=== PATIENT | female | born 1955 | race African-American/Black ===

== ENCOUNTER 2019-03-04 11:14 | Emergency (ER) | payer OTHER ==
--- NOTE | 2019-03-04 12:17 | ED ---
Back Pain - HPI Summary HPI Summary: 63 year old female presents to the emergency department for evaluation of left upper back pain. This problem has been present for 3 days and is constant. Pt describes the pain as sharp and throbbing and rates it as 10/10. She states that taking a deep breath in and sharp, quick movements make the pain worst. Nothing makes the pain better. The pt is on tramadol and gabapentin for chronic low back pain and she states those medications are not helping this new type of pain. Pt denies any trauma, SOB, cough, fevers, chest pain, weakness, numbness, and tingling. - History of Current Complaint Chief Complaint: EDBackInjuryPain Stated Complaint: PAIN IN LEFT SHOULDER/BACK SINCE SAT. PER PT Time Seen by Provider: 03/04/19 11:28 Hx Obtained From: Patient Onset/Duration: Gradual Onset Onset/Duration: Started Days Ago, Atraumatic Back Pain Location: Is Discrete @ - left upper back Pain Intensity: 10 Pain Scale Used: 0-10 Numeric Character: Sharp Aggravating Symptom(s): Movement, Other - deep inhalation Associated Signs And Symptoms: Positive: Negative. Negative: Swelling, Redness , Bruising, Fever, Weakness, Numbness, Tingling - Allergies/Home Medications Allergies/Adverse Reactions: Allergies Allergy/AdvReac Type Severity Reaction Status Date / Time No Known Allergies Allergy Verified 03/04/19 11:26 PMH/Surg Hx/FS Hx/Imm Hx Previously Healthy: Yes Endocrine/Hematology History: Reports: Hx Diabetes, Hx Thyroid Disease - hypothyroidism Cardiovascular History: Reports: Hx Hypertension Denies: Hx Pacemaker/ICD Respiratory History: Reports: Hx Pneumonia, Hx Sleep Apnea GI History: Reports: Hx Gastroesophageal Reflux Disease Musculoskeletal History: Reports: Hx Arthritis, Hx Back Problems, Hx Fibromyalgia, Other Musculoskeletal History - FIBROMYALGIA Sensory History: Reports: Hx Contacts or Glasses, Hx Hearing Aid, Hx Hearing Problem Opthamlomology History: Reports: Hx Contacts or Glasses Neurological History: Reports: Hx Headaches, Other Neuro Impairments/Disorders - PAIN CLINIC PT Psychiatric History: Reports: Hx Depression Denies: Hx Panic Disorder - Surgical History Surgery Procedure, Year, and Place: KNEE REPLACEMENTS-Rt :07/2012; Lt KNEE REPLACEMENT :1995; 1986 bilateral foot surgery 05/31 cataract removal 07/01 right carpal tunnel surgery 08/31. April 26 2017- left rotator cuff repair Hx Anesthesia Reactions: No Infectious Disease History: No Infectious Disease History: Denies: Hx Clostridium Difficile, Hx Hepatitis, Hx Human Immunodeficiency Virus (HIV), Hx of Known/Suspected MRSA, Hx Shingles, Hx Tuberculosis, Hx Known/ Suspected VRE, Hx Known/Suspected VRSA, History Other Infectious Disease, Traveled Outside the [place] in Last 30 Days - Social History Alcohol Use: None Substance Use Type: Reports: None Smoking Status (MU): Former Smoker Type: Cigarettes Review of Systems Constitutional: Negative Negative: Fever, Chills, Fatigue, Skin Diaphoresis Eyes: Negative ENT: Negative Cardiovascular: Negative Negative: Palpitations, Chest Pain Respiratory: Negative Negative: Shortness Of Breath, Cough Gastrointestinal: Negative Negative: Vomiting, Diarrhea, Nausea Positive: Other - pain in the left upper back. Negative: Decreased ROM, Edema Skin: Negative Negative: Rash Neurological: Negative Negative: Headache, Weakness, Paresthesia, Numbness All Other Systems Reviewed And Are Negative: Yes Physical Exam Triage Information Reviewed: Yes Vital Signs On Initial Exam: Initial Vitals Temp Pulse Resp BP Pulse Ox 96.7 F 70 20 179/96 98 03/04/19 11:21 03/04/19 11:21 03/04/19 11:21 03/04/19 11:21 03/04/19 11:21 Vital Signs Reviewed: Yes Appearance: Positive: Well-Appearing, Well-Nourished Skin: Positive: Warm, Skin Color Reflects Adequate Perfusion, Dry, Other - Well healed surgical scar on the left shoulder post rotator cuff surgery Head/Face: Positive: Normal Head/Face Inspection Eyes: Positive: EOMI, MAXIMO, Conjunctiva Clear ENT: Positive: Normal ENT inspection, Hearing grossly normal, Pharynx normal Neck: Positive: Supple, Nontender Respiratory/Lung Sounds: Positive: Clear to Auscultation, Breath Sounds Present Cardiovascular: Positive: Normal, RRR, Pulses are Symmetrical in both Upper and Lower Extremities Musculoskeletal: Positive: Normal, Strength/ROM Intact, Pain @ - left upper back along the scapula and trapezius muscle. Pain elicited with palpation and movement Neurological: Positive: Normal, Sensory/Motor Intact, Alert, Oriented to Person Place, Time, Speech Normal Psychiatric: Positive: Normal Diagnostics - Vital Signs Vital Signs Temp Pulse Resp BP Pulse Ox 03/04/19 11:21 96.7 F 70 20 179/96 98 - Laboratory Lab Statement: Any lab studies that have been ordered have been reviewed, and results considered in the medical decision making process. Back Pain Course/Dx - Course Course Of Treatment: Pt presents with sharp pain on her left upper back that is worse with movement and deep inhalation. Pain is elicited during the physical exam with deep palpation of the upper back muscles. Pt reports no chest pain, SOB, or cough. She was informed her pain is likely due to muscle tightness in the upper back. She was given stretching exercises to do to help alleviate the pain, advised to use heat on the area, and continue seeing her pain management provider. - Diagnoses Differential Diagnosis/HQI/PQRI: Positive: Strain, Sprain, Other - PE, muscle strain, trauma Provider Diagnoses: Muscle pain Discharge - Sign-Out/Discharge Documenting (check all that apply): Patient Departure Patient Received Moderate/Deep Sedation with Procedure: No - Discharge Plan Condition: Stable Disposition: HOME Patient Education Materials: Muscle Strain (ED) Referrals: Vero Pickering NP [Primary Care Provider] - Additional Instructions: You have a tightness in the muscles of your back Heat and gentle stretches will be most beneficial for relief/improvement Continue with your dosage of tramadol for relief Follow up with your PCP - Billing Disposition and Condition Condition: STABLE Disposition: Home
[2019-03-04 12:29] VITALS: BP 163/91
== END 2019-03-04 12:29 | disposition home or self-care (01) ==
LOC: ED 11:14
DX: M79.10 Myalgia, unspecified site (principal); I10 Essential (primary) hypertension; K21.9 Gastro-esophageal reflux disease without esophagitis; M79.7 Fibromyalgia; F32.9 Major depressive disorder, single episode, unspecified; Z87.891 Personal history of nicotine dependence; E11.9 Type 2 diabetes mellitus without complications; E03.9 Hypothyroidism, unspecified
CPT/HCPCS: 93005; 99282

== ENCOUNTER 2019-08-14 10:41 | Inpatient (IN) | payer OTHER ==
[~2019-08-14 10:41] MED LIST: Buffered Lidocaine 1% SYRIN* 1 ML/SYRINGE INTRADERM ONE; Famotidine IV* 10 MG/ML 2 ML (20 mg) IV ONE; Gabapentin CAP(*) 300 MG PO ONE; Lactated Ringers 1000 ML Bag* 1,000 ML IV SCH; Tranexamic Acid 1,000 MG in NS 0.9% 50 ML* (outpatient use) IV SCH
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
--- OUTSIDE RECORDS SUMMARY | 2019-08-14 10:44 | XMS REPORT | Continuity of Care Document ---
:1955 External Reference #:[id number] Author Name Kirstin Pickering, [facility] Address [address] [place] [id number] Care Team Providers Name Role Phone Boby Wilde MD - Orthopaedic Care Team Information Silk Presser [phone] Surgery Kirstin Pickering NP - Nurse Care Team Information Silk Presser [phone] Practitioner Problems Active Problems Provider Date Benign [...] 04/13/2017 Chronic post-traumatic stress disorder Kirstin Pickering SEKOU Onset: 03/12 Recurrent depression Kirstin Pickering SEKOU Onset: 03/12/2018 Anxiety Kirstin Pickering CUTTING MACHINE OPERATOR HELPER Onset: 03/12/2018 Osteoarthritis of left hip joint Kirstin Pickering SEKOU Onset: 06/11/2019 Note: Document: 06/11/19 - Pain [...] Medications Active Medications SIG Qnty Indications Ordering Date Provider Multivitamin Adult 1 by mouth every 90tabs Ladan, 05/31/2018 day Jenmelissaferangelika, Tablets CUTTING MACHINE OPERATOR HELPER Fluoxetine HCL Take One Capsule 90caps F43.10 Bandon, 03/12/2018 20mg By Mouth Every Day Kirstin, Capsules With 40MG Capsule CUTTING MACHINE OPERATOR HELPER For A Total Daily Dose Of 60MG Ferrous Gluconate Take One Tablet By 60tabs Ladan, 02/08/2017 Mouth Twice A Day Kirstin 324(38Fe) mg Tablets CUTTING MACHINE OPERATOR HELPER Aspirin chew one tablet by 30units Ladan, 01/09/2017 81mg Chewtabs mouth every day Kirstin CUTTING MACHINE OPERATOR HELPER Fish Oil Take One Capsule 30caps Ladan, 07/09/2015 1000mg By Mouth Every Day Kirstin, Capsules CUTTING MACHINE OPERATOR HELPER Calcium take one tablet by 60tabs Ladan, 04/05/2015 Carbonate-Vitamin D mouth twice a day SEKOU [place] [id number] Tablets Levothyroxine Sodium Take One Tablet By 90tabs Cassandra Tovar, 04/05/2015 Mouth Every Day PNP-BC, CUTTING MACHINE OPERATOR HELPER, 75mcg Tablets Ibclc Losartan Potassium Take One Tablet By 90tabs Ladan, 12/23/2013 50mg Mouth Every Day Tracyferangelika, Tablets CUTTING MACHINE OPERATOR HELPER Albuterol Sulfate nebulized every 4 75ml Kim, 04/28/2013 hours as needed Iris Rowland (2.5mg/3ML) 0.083% Nebulizer Fluoxetine HCL take one capsule 90caps Clune, 09/04/2012 40mg by mouth every day Kirstin, Capsules with 20mg for 60mg CUTTING MACHINE OPERATOR HELPER total Tramadol HCL 2 po hs Hinkle,Qi 50mg Tablets Trazodone HCL Take Two Tablets 90tabs F43.10 Clune, 100mg By Mouth AT [facility], Tablets Bedtime CUTTING MACHINE OPERATOR HELPER Gabapentin taking 2 tabs PO 270caps M79.7 Clune, 300mg bid *prescribed by Kirstin, Capsules family counseling CUTTING MACHINE OPERATOR HELPER services Hydroxyzine HCL Take Two Tablets 60tabs Clune, 50mg By Mouth AT [facility], Tablets Bedtime CUTTING MACHINE OPERATOR HELPER Omeprazole Take One Capsule 30caps Clune, 20mg By Mouth Every Day Kirstin, Capsules DR Maximum Daily Dose CUTTING MACHINE OPERATOR HELPER = 1 Capsule Terazosin HCL take one capsule 90caps I10 Clune, 10mg by mouth every day Jenmelissaferangelika, Capsules maximum daily dose CUTTING MACHINE OPERATOR HELPER = 1 capsule Atorvastatin Calcium Take One Tablet By 30tabs Clune, Mouth Every Day Jenferleijenniffer, 40mg Tablets CUTTING MACHINE OPERATOR HELPER Verapamil HCL Take One Tablet By 60tabs Clune, 120mg Mouth Twice A Day Tracyferleigh, Tablets CUTTING MACHINE OPERATOR HELPER Methocarbamol Unknown 500mg Tablets Medications Administered in Office Medication SIG Qnty Indications Ordering Provider Date Methylprednisolone acetate Debo Matute, 12/14/2016 (Depomedrol) 80mg injection RPAC Injection Methylprednisolone acetate Debo Matute, 02/15/2016 (Depomedrol) 80mg injection RPAC Injection Depomedrol 40mg/1cc Debo Matute, 08/03/2015 (methylprednisolone acetate) RPAC Injection Depomedrol 40mg/1cc Debo Matute, 08/21/2014 (methylprednisolone acetate) RPAC Injection Depomedrol 40mg/1cc Debo Matute, 11/04/2013 (methylprednisolone acetate) RPAC Injection Immunizations CPT Code Status Date Vaccine Lot # [id number] Given 09/02/2018 Influenza Virus Vaccine, Quadrivalent, 36 Mos+, [id number] 45487 Given 11/29/2016 Influenza Virus Vaccine Split Virus Use For [id number] Individual 3Yr Older 01115 Given 05/29/2016 Tdap injection [id number] Q2038 Given 09/03/2015 Influenza Vaccine (Fluzone) Age 3 And Older [id number] 59404 Given 09/03/2015 Pneumococcal Conjugate Vaccine 13 Valent For [id number] Intramuscular Use 04194 Given 08/26/2014 flu vaccination 03146 Given 11/26/2012 flu vaccination 37436 Given 09/26/2011 Pneumovax Injection 10206 Given 09/26/2011 flu vaccination 14706 Given 07/27/2010 flu vaccination 93862 Given 12/17/2009 flu vaccination 20568 Given 12/17/2009 H1N1 Immuniation Adminstration 79809 Given 12/17/2009 H1N1 Immuniation Adminstration 90535 Given 09/23/2008 flu vaccination 99599 Given 11/23/2005 flu vaccination Vital Signs Date Vital Result Comment 07/15/2019 11:15am BP Systolic Sitting Left Arm 149 mmHg BP Diastolic Sitting Left Arm 91 mmHg Body Temperature 97.9 F Heart Rate 81 /min Respiratory Rate 19 /min Height 63 inches 5'3" Weight 219.00 lb BMI (Body Mass Index) 38.8 kg/m2 BSA (Body Surface Area) 2.01 m2 Mercedes body weight in kilograms 52 kg Pain Level 8 lower back and hip/leg 04/01/2019 10:36am BP Systolic 142 mmHg BP Diastolic 80 mmHg Heart Rate 89 /min Respiratory Rate 18 /min Height 63 inches 5'3" Weight 222.00 lb BMI (Body Mass Index) 39.3 kg/m2 BSA (Body Surface Area) 2.02 m2 Mercedes body weight in kilograms 52 kg O2 % BldC Oximetry 98 % Results Test Date Facility Test Result H/L Range Note Comprehensive 07/15/[address] [facility] [address] Glucose 96 mg/dL Normal 74-106 1 Metabolic Panel [address] [place] [address] [phone] BUN 13 mg/dL Normal 7-18 Creatinine 0.9 mg/dL Normal 0.6-1.3 Glom Filtration Rate, Estimate >60 mL/min >60 If >60 mL/min >60 2 BUN/Creat 14.4 ratio Sodium 140 mmol/L Normal [...] Normal 0.2-1.0 Sgot/Ast 14 U/L Low 15-37 3 SGPT/Alt 23 U/L Normal 12-78 Alkaline Phosphatase 129 U/L High 45-117 Laboratory test 07/15/[address] Thyroid Stim 2.95 Normal 0.30 -4.[address] [place] [address] Hormone uIU/[place] [address] [phone] LDL Cholesterol 07/15/[address] Cholesterol 190 mg/dL <200 4 Profile [address] [place], [place] [id number] [phone] Triglycerides 72 mg/dL <150 5 HDL Cholesterol 99 mg/dL >40 6 LDL-Cholesterol 77 mg/dL < 100 7 Laboratory test 03/11/[address] C-Reactive 3.8 mg/L High < 3.0 [address] [place] [address] Protein,Quant [place], [place] [id number] [phone] Lyme Igg & Igm 03/11/[address] Lyme AB Igg By . By Western Blot [address] [facility] Western Blot [place], [place] [id number] [phone] P93 AB Absent . P66 AB Absent . P58 AB Absent . P45 AB Absent . P41 AB Present Abnormal . P39 AB Absent . P30 AB Absent . P28 AB Absent . P23 AB Absent . P18 AB Absent . Lyme Igg WB Interpretation Negative . 9 Lyme AB Igm By Western Blot . P41 AB Absent . P39 AB Absent . P23 AB Absent . Lyme Igm WB Interpretation Negative . 10 Laboratory test 03/11/[address] [facility] [address] Vitamin D,1,25 38.1 pg/mL 19.9-79.3 11 finding [address] [place] [address] [phone] Thyroid Stim Hormone 2.07 uIU/mL Normal 0.30-4.20 [...] 1.9-4.3 Antinuclear Antibodies, Ifa Negative . 13 1 I10 E03.9 E78.2 2 Note: Persistent reduction for 3 months or more in an eGFR <60 mL/min/1.73 m2 defines CKD. Patients with eGFR values >/=60 mL/min/1.73 m2 may also have CKD if evidence of persistent proteinuria is present. The original MDRD equation for estimated GFR is not valid for patients less than 18 years of age. Additional information may be found at www.kdoqi.org. 3 Values below the stated reference ranges of AST and ALT can be seen in normal populations. Clinical correlation is suggested. 4 Reference Guidelines*: Desirable: ........... < 200 mg/dL Borderline High: ..... 200-239 mg/dL High: ................ >= 240 mg/dL * The National Cholesterol Education Program (NCEP) 5 Reference Guidelines*: Normal: ............. < 150 mg/dL Borderline High: .... 150-199 mg/dL High: ............... 200-499 mg/dL Very High: .......... > 500 mg/dL * Source: National Cholesterol Education Program (NCEP) 6 Reference Guidelines*: Low HDL: ..... < 40 mg/dL Normal: ..... 40-60 mg/dL Desirable: ... > 60 mg/dL *The National Cholesterol Education Program(NCEP) 7 Reference Guidelines*: Optimal:........... <100 mg/dL Near Optimal....... 100-129 mg/dL Borderline High.... 130-159 mg/dL High............... 160-189 mg/dL Very High.......... >=190 mg/dL * Source: National Cholesterol Education Program (NCEP) 8 M25.542 9 Positive: 5 of the following Borrelia-specific bands: 18,23,28,30,39,41,45,58, 66, and 93. Negative: No bands or banding patterns which do not meet positive criteria. 10 Note: An equivocal or positive EIA result [...] are those recommended by CDC/ASTPHLD. p23=Osp C, t26=iakablfuf Note: Sera from individuals with the following may cross react in the Lyme Western Blot assays: other spirochetal diseases (periodontal disease, leptospirosis, relapsing fever, yaws, and pinta); connective autoimmune (Rheumatoid Arthritis and Systemic Lupus Erythematosus and also individuals with Antinuclear Antibody); other infections (Broxton Spotted Fever; Jacob-Holland Virus, and Cytomegalovirus). 11 Performed at: [address] [id number] Lead Cashier: Brandt Cates MD, Phone: [phone] This result was obtained with an ESR method that is not based on the standard Westergren Method. When comparing results obtained from the traditional Westergren ESR and this method it is important to refer to the reference range for each method. Method: Capillary Photometry 13 Negative <1:80 Borderline 1:80 Positive >1:80 Performed at: [address] [id number] Lead Cashier: Toya Hanley MD, Phone: [phone] Procedures Date Code Description Status 07/15/2019 76126 EKG-Tracing And Report Completed 05/28/2018 59601537 Mammogram Completed 05/21/2014 52856783 Colonoscopy Completed Medical Devices Description No Information Available Encounters Type Date Location Provider Dx Diagnosis Office Visit 07/15/2019 Family Medicine Ladan, Z00.01 Encounter for 11:30a [address] Kirstin, general adult CUTTING MACHINE OPERATOR HELPER medical exam w abnormal findings I45.10 Unspecified right bundle-branch block I10 Essential (primary) hypertension F43.10 Post-traumatic stress disorder, unspecified M25.552 Pain in left hip Z01.818 Encounter for other preprocedural examination Office Visit 04/01/2019 10:30a Family Medicine Kirstin Pickering, M79.[address] CUTTING MACHINE OPERATOR HELPER F43.10 Post-traumatic stress disorder, unspecified M25.562 Pain in left knee Office Visit 03/11/2019 11:15a Family Medicine Kirstin Pickering, M25.[address] CUTTING MACHINE OPERATOR HELPER left knee M25.541 Pain in joints of right hand M25.542 Pain in joints of left hand Assessments Date Code Description Provider 07/15/2019 Z00.01 Encounter for general adult medical Kirstin Pickering, CUTTING MACHINE OPERATOR HELPER examination with abnormal findings 07/15/2019 I45.10 Unspecified right bundle-branch block Kirstin Pickering , CUTTING MACHINE OPERATOR HELPER 07/15/2019 I10 Essential (primary) hypertension Kirstin Pickering, CUTTING MACHINE OPERATOR HELPER 07/15/2019 F43.10 Post-traumatic stress disorder, Karolyn Pickeringniferangelika, CUTTING MACHINE OPERATOR HELPER unspecified 07/15/2019 M25.552 Pain in left hip Kirstin Pickering, CUTTING MACHINE OPERATOR HELPER 07/15/2019 Z01.818 Encounter for other preprocedural Kirstin Pickering, CUTTING MACHINE OPERATOR HELPER examination 04/01/2019 M79.7 Fibromyalgia Kirsitn Pickering, CUTTING MACHINE OPERATOR HELPER 04/01/2019 F43.10 Post-traumatic stress disorder, Karolyn Pickeringniferangelika, CUTTING MACHINE OPERATOR HELPER unspecified 04/01/2019 M25.562 Pain in left knee Kirstin PickeringSEKOU 03/11/2019 M25.562 Pain in left knee Clhilda, KirstinSEKOU 03/11/2019 M25.541 Pain in joints of right hand Kirstin PickeringSEKOU 03/11/2019 M25.542 Pain in joints of left hand Ladan SEKOU [place] Plan of Treatment Future Appointment(s):11/10/2019 1:15 pm - Kirstin Pickering FNP at [facility] RD08/07/2019 8:20 am - Rivera Suarez PA at Cardiology Uhfzyy6307/15/2019 - Kirstin Pickering FNPZ00.01 Encounter for general adult medical examination with abnormal findingsComments:Immunizations reviewed and up to date - encourage yearly flu shotdepression screening negative but with known anxiety/PTSD as noted belowPap due olonoscopy 05/21/2014 repeat Mammogram - was done as per patient will need to get copy of reportFollow up:3- 4 months f/u of chronic medical yjgtxdY52.10 Unspecified right bundle-branch blockNew Orders:Echocardiogram, Ordered: 07/15/19Comments:has cardiology appt for 08/07/19 for cardiac clearance. Will be scheduled for echo prior to apptI10 Essential (primary) hypertensionNew Orders:Echocardiogram, Ordered: Comments:Blood pressure elevated today as well as at previous visit - however w/new EKG findings, and with cardiology appt already scheduled will let cardiologists make [id number] Post-traumatic stress disorder, unspecifiedComments:would like to consider coming off some medications - feels she is doing well without increased anxiety. Will continue to monitor while she goes through her surgeries and then consider medication changes AFTERFluoxetine 60 mg dailyGabapentin 300 mg 2 tabs BIDHydroxyzine 50 mg - two tabs PO at HS Trazodone 100 mg - sleepmay consider decreasing [id number] Pain in left hipZ01.818 Encounter for other preprocedural examinationNew Orders: Echocardiogram, Ordered: 07/15/19Comments:EKG shows new onset RBBB - has appt for cardiac clearance Labs done and unconcerning at this time. Other than above mentioned cardiac concern, and existing obesity which does place her at a higher risk for the proposed surgery - she is doing well and pending cardiac clearance, cleared. Functional Status Functional Condition Comment Date Status Glasses Active Independent with all ADL's Active Standard cane is used to ambulate Active Cpap Active Hearing Aid, left ear Active Mental Status Description No Information Available Referrals Refer to Reason for Referral Status Appt Date Jose Alberto Dickerson MD fibromyalgia management [facility]/08/2019 [address] [facility] [place] [address] [place] [address] [phone]
--- OUTSIDE RECORDS SUMMARY | 2019-08-14 10:44 | XMS REPORT | Continuity of Care Document ---
:1955 External Reference #:[id number] Author Name Rivera Suarez PA (transmitted by agent of provider Milan Santiago) Address [address], [address] [place] [address] Care Team Providers Name Role Phone Boby Wilde MD - Orthopaedic Care Team Information Kid Club Attendant [phone] Surgery Kirstin Pickering NP - Nurse Care Team Information [employer] Attendant Practitioner Problems Active Problems Provider Date Benign [...] mouth every 90tabs Kirstin Pickering, 2017 day MANAGER UI Tablets Fluoxetine HCL Take One Capsule 90caps F43.10 Kirstin Pickering, 2017 20mg By Mouth Every MANAGER UI Capsules Day With 40MG Capsule For A Total Daily Dose Of 60MG Ferrous Gluconate Take One Tablet 60tabs Kirstni Pickering, 02/08/2017 By Mouth Twice A MANAGER UI 324(38Fe) mg Tablets Day Aspirin chew one tablet 30units Kirstin Pickering, 01/09/2017 81mg Chewtabs by mouth every MANAGER UI day Fish Oil Take One Capsule 30caps Kirstin Pickering, 07/09/2015 1000mg By Mouth Every MANAGER UI Capsules Day Calcium take one tablet 60tabs Kirstin Pickering, 04/05/2015 Carbonate-Vitamin D by mouth twice a MANAGER UI day [id number] Tablets Levothyroxine Sodium Take One Tablet 90tabs Cassandra Tovar, 04/05/2015 By Mouth Every PNP-BC, MANAGER UI, Ibclc 75mcg Tablets Day Losartan Potassium Take One Tablet 90tabs Tracy Pickeringvivianaangelika, 2013 50mg By Mouth Every MANAGER UI Tablets Day Albuterol Sulfate nebulized every 4 75ml Janett Alvarez, 04/28/2013 hours as needed M.D. (2.5mg/3ML) 0.083% Nebulizer Fluoxetine HCL take one capsule 90caps Tracy Pickeringvivianaangelika, 09/04/2012 40mg by mouth every MANAGER UI Capsules day with 20mg for 60mg total Tramadol HCL 2 po hs Hinkle,Qi 50mg Tablets Trazodone HCL Take Two Tablets 90tabs F43.10 Karolyn Pickeringconnorangelika, 100mg By Mouth AT MANAGER UI Tablets Bedtime Gabapentin taking 2 tabs PO 270caps M79.7 Ladan, Veroangelika, 300mg bid *prescribed MANAGER UI Capsules by family counseling services Hydroxyzine HCL Take Two Tablets 60tabs Karolyn Pickeringconnormarthajenniffer, 50mg By Mouth AT MANAGER UI Tablets Bedtime Omeprazole Take One Capsule 30caps Tracy Pickeringvivianamarthajenniffer, 20mg By Mouth Every MANAGER UI Capsules DR Day Maximum Daily Dose = 1 Capsule Terazosin HCL take one capsule 90caps I10 Tracy Pickeringvivianaangelika, 10mg by mouth every MANAGER UI Capsules day maximum daily dose = 1 capsule Atorvastatin Calcium Take One Tablet 30tabs Tracy Pickeringvivianaangelika, By Mouth Every MANAGER UI 40mg Tablets Day Methocarbamol Unknown 500mg Tablets Medications Administered in Office Medication SIG Qnty Indications Ordering Provider Date Methylprednisolone acetate Debo Matute, 12/14/2016 (Depomedrol) 80mg injection RPAC Injection Methylprednisolone acetate Debo Matute, 02/15/2016 (Depomedrol) 80mg injection RPAC Injection Depomedrol 40mg/1cc Debo Matute, 08/03/2015 (methylprednisolone acetate) RPAC Injection Depomedrol 40mg/1cc Debo Matute, 08/21/2014 (methylprednisolone acetate) RPAC Injection Depomedrol 40mg/1cc Debo Matute, 11/04/2013 (methylprednisolone acetate) [facility] Injection Immunizations CPT Code Status Date Vaccine Lot # 84660 Given 09/02/2018 Influenza Virus Vaccine, Quadrivalent, 36 Mos+, [id number] .[id number] 36122 Given 11/29/2016 Influenza Virus Vaccine Split Virus Use For [id number] Individual 3Yr Older 31092 Given 05/29/2016 Tdap injection [id number] Q2038 Given 09/03/2015 Influenza Vaccine (Fluzone) Age 3 And Older [id number] 99009 Given 09/03/2015 Pneumococcal Conjugate Vaccine 13 Valent For [id number] Intramuscular Use 54713 Given 08/26/2014 flu vaccination 68050 Given 11/26/2012 flu vaccination 61536 Given 09/26/2011 Pneumovax Injection 40165 Given 09/26/2011 flu vaccination 39310 Given 07/27/2010 flu vaccination 67476 Given 12/17/2009 flu vaccination 75766 Given 12/17/2009 H1N1 Immuniation Adminstration 70685 Given 12/17/2009 H1N1 Immuniation Adminstration 19791 Given 09/23/2008 flu vaccination 67250 Given 11/23/2005 flu vaccination Vital Signs Date Vital Result Comment 08/07/2019 9:54am BP Systolic Sitting Left Arm 138 mmHg BP Diastolic Sitting Left Arm 88 mmHg Heart Rate 49 /min Respiratory Rate 18 /min Height 63 inches 5'3" Weight 220.00 lb BMI (Body Mass Index) 39.0 kg/m2 BSA (Body Surface Area) 2.01 m2 Jackson body weight in kilograms 52 kg O2 % BldC Oximetry 97 % Ora Ejection Fraction 65% 07/15/2019 11:15am BP Systolic Sitting Left Arm 149 mmHg BP Diastolic Sitting Left Arm 91 mmHg Body Temperature 97.9 F Heart Rate 81 /min Respiratory Rate 19 /min Height 63 inches 5'3" Weight 219.00 lb BMI (Body Mass Index) 38.8 kg/m2 BSA (Body Surface Area) 2.01 m2 Jackson body weight in kilograms 52 kg Pain Level 8 lower back and hip/leg Results Test Date Facility Test Result H/L Range Note Inr/Protime [facility] Inr 0.90 Normal 0.82-1.09 1 9 [phone] Laboratory test [facility] Partial 32.9 seconds Normal 26.0-38.0 finding 9 [phone] Thrombo Time PTT Urinalysis [facility] Urine Color Yellow Profile 9 [phone] Urine Appearance Clear Urine Specific [place] 1.013 Normal 1.010-1.030 Urine pH 5.0 Normal 5-9 Urine Urobilinogen Negative Negative Urine Ketones Negative Negative Urine Protein Negative Negative Urine Leukocytes Negative Negative Urine Blood Negative Negative Urine Nitrite Negative Negative Urine Bilirubin Negative Negative Urine Glucose Negative Negative CBC Auto 08/04/2019 [facility] White Blood 6.7 10^3/ uL Normal 3.5-10.8 Diff [phone] Count Red Blood Count 4.86 10^6/uL Normal [...] Cells % 0.0 Type & Screen 08/04/2019 [facility] Patient Blood A Negative [phone] Type Antibody Screen NEGATIVE Urine Culture And 08/04/2019 [facility] Urine SEE RESULT 2 Sensitivities [phone] Culture BELOW Comprehensive 07/15/[address] [facility] [address] Glucose 96 mg/dL Normal 74-10 3 Metabolic Panel [address] [place], [place] [id number] [phone] BUN 13 mg/dL Normal 7-18 Creatinine 0.9 [...] 129 U/L High 45-117 Laboratory test 07/15/[address] Thyroid Stim 2.95 Normal 0.30 -4.20 finding [address] Hormone uIU/mL [place], [place] [address] [phone] LDL Cholesterol 07/15/[address] Cholesterol 190 mg/dL <200 [address] [place] [address] [id number] [phone] Triglycerides 72 mg/dL <150 7 HDL Cholesterol 99 mg/dL >40 8 LDL-Cholesterol 77 mg/dL < 100 9 Laboratory test 03/11/[address] Vitamin 38.1 19.9-79.3 10, [address] [place] [address] D,1,25 pg/[place] [address] Oojsrrlmi [phone] Thyroid Stim Hormone 2.07 uIU/mL Normal 0.30-4.20 [...] 13 Lyme Igg & Igm By 03/11/2019 [facility] Lyme AB Igg By Western . Western Blot [address] [place] [address] [phone] P93 AB Absent . P66 AB Absent [...] Interpretation Negative . 15 Laboratory test 03/11/[address] C-Reactive 3.8 mg/L High < 3.[address] Protein,[place] [address] [phone] 1 Standard intensity warfarin therapeutic range: 2.0-3.0 High intensity warfarin therapeutic range: 2.5-3.5 2 SEE RESULT BELOW Name: YOLIS CORLEY V : [address]: Jaqui Dixon MD Acct: [id number] Unit: [id number] AGE: 63 Location: [facility] Re08/04/19 SEX: F Status: REG REF SPEC: [id number] MEI: 08/04/19 [facility] DR: Jaqui Dixon MD REQ: [id number] RECD: 08/04/19 STATUS: ANEL AGRAWAL DR: Kirstin Pickering MANAGER UI _ SOURCE: URINE SPDESC: ORDERED: Urine Culture Procedure Result Reported Site Urine Culture Final 08/05/19- 1345 ML No growth of clinically significant organisms * ML - Main Lab . END OF REPORT DEPARTMENT OF PATHOLOGY, [address] [place] [address] Constantin Monet M.D. Director [facility] # [id number] 3 I10 E03.9 E78.2 4 Note: Persistent [...] (NCEP) 10 M25.542 11 Performed at: - [address] [id number] Cafeteria Server: Brandt Cates MD, Phone: [phone] This result was obtained with an ESR method that is not based on the standard Westergren Method. When comparing results obtained from the traditional Westergren ESR and this method it is important to refer to the reference range for each method. Method: Capillary Photometry 13 Negative <1:80 Borderline 1:80 Positive >1:80 Performed at: [facility] [address] [id number] Cafeteria Server: Toya Hanley MD, Phone: [phone] 14 Positive: 5 of the following Borrelia-specific [...] are those recommended by CDC/ASTPHLD. p23=Osp C, d04=amorlagtt Note: Sera from individuals with the following may cross react in the Lyme Western Blot assays: other spirochetal diseases (periodontal disease, leptospirosis, relapsing fever, yaws, and pinta); connective autoimmune (Rheumatoid Arthritis and Systemic Lupus Erythematosus and also individuals with Antinuclear Antibody); other infections ([place] Spotted Fever; Jacob-Holland Virus, and Cytomegalovirus). Procedures Date Code Description Status 08/07/2019 99539 EKG-Tracing And Report Completed 07/28/2019 [id number] Mammogram Completed 07/15/2019 82067 EKG-Tracing And Report Completed 05/21/2014 [id number] Colonoscopy Completed Medical Devices Description No Information Available Encounters Type Date Location Provider Dx Diagnosis Office Visit 08/07/2019 Cardiology Office Erick Deborabrigida Z01.810 Encounter for 10:00a MELANIE Low preprocedural cardiovascular examination R94.31 Abnormal electrocardiogram [ECG] [EKG] I10 Essential (primary) hypertension R00.1 Bradycardia, unspecified Office Visit 07/15/2019 Family Pickering Z00.01 [facility] medical exam w abnormal findings I45.10 Unspecified right bundle-branch block I10 Essential (primary) hypertension F43.10 Post-traumatic stress disorder, unspecified M25.552 Pain in left hip Z01.818 Encounter for other preprocedural examination Office Visit 04/01/2019 10:30a Family Medicine BryanTracy stevensfiordaliza, M79.[address] MANAGER UI F43.10 Post-traumatic stress disorder, unspecified M25.562 Pain in left knee Office Visit 03/11/2019 11:15a Family Medicine BryanVero stevensmarthajenniffer, M25.[address] MANAGER UI left knee M25.541 Pain in joints of right hand M25.542 Pain in joints of left hand Assessments Date Code Description Provider 08/07/2019 Z01.810 Encounter for preprocedural Rivera Suarez, PA cardiovascular examination 08/07/2019 R94.31 Abnormal electrocardiogram [ECG] [EKG] Rivera Suarez PA 08/07/2019 I10 Essential (primary) hypertension Rivera Suarez, PA 08/07/2019 R00.1 Bradycardia, unspecified Rivera Suarez PA 07/15/2019 Z00.01 Encounter for general adult medical Kirstin Pickering, MANAGER UI examination with abnormal findings 07/15/2019 I45.10 Unspecified right bundle-branch block Kirstin Pickering , MANAGER UI 07/15/2019 I10 Essential (primary) hypertension Kirstin Pickering, MANAGER UI 07/15/2019 F43.10 Post-traumatic stress disorder, Kirstin Pickering, MANAGER UI unspecified 07/15/2019 M25.552 Pain in left hip Kirstin Pickering, MANAGER UI 07/15/2019 Z01.818 Encounter for other preprocedural Kirstin Pickering, MANAGER UI examination 04/01/2019 M79.7 Fibromyalgia Kirstin Pickering, MANAGER UI 04/01/2019 F43.10 Post-traumatic stress disorder, Kirstin Pickering, MANAGER UI unspecified 04/01/2019 M25.562 Pain in left knee Kirtsin Pickering, MANAGER UI 03/11/2019 M25.562 Pain in left knee Kirstin Pickering, MANAGER UI 03/11/2019 M25.541 Pain in joints of right hand Ladan SEKOU Fulton 03/11/2019 M25.542 Pain in joints of left hand Ladan SEKOU Fulton Plan of Treatment Future Appointment(s):11/10/2019 11:20 am - Rivera Suarez, PA at Cardiology Zdmfie7111/10/2019 1:15 pm - Kirstin Pickering FNP at [facility]08/07/2019 - Rivera Suarez, PAZ01.810 Encounter for [...] Dickerson MD fibromyalgia management Sent 07/08/2019 [address] [facility] [place] [address] [place] [id number] [phone]
--- OUTSIDE RECORDS SUMMARY | 2019-08-14 10:45 | XMS REPORT | Continuity of Care Document ---
:1955 External Reference #:[id number] Author Name Kirstin Pickering, [facility] Address [address] [place] [address] Care Team Providers Name Role Phone Boby Wilde MD - Orthopaedic Care Team Information Labor Utilization Superintendent Surgery Kirstin Pickering NP - Nurse Care Team Information Labor Utilization Superintendent Practitioner Problems Active Problems Provider Date Benign [...] Pickering SEKOU Onset: 03/12/2018 Anxiety Kirstin Pickering [employer] Onset: 03/12/2018 Osteoarthritis of left hip joint [...] every 90tabs Ladan, 05/31/2018 day Jenmelissaferangelika, Tablets [employer] OFFICER Fluoxetine HCL Take One Capsule 90caps F43.10 [place], 03/12/2018 20mg By Mouth Every Day Kirstin, Capsules With 40MG Capsule [employer] OFFICER For A Total Daily Dose Of 60MG Ferrous Gluconate Take One Tablet By 60tabs Ladan, 02/08/2017 Mouth Twice A Day Kirstin 324(38Fe) mg Tablets [employer]ICER Aspirin chew one tablet by 30units Ladan, 01/09/2017 81mg Chewtabs mouth every day Kirstin [employer] OFFICER Fish Oil Take One Capsule 30caps Ladan, 07/09/2015 1000mg By Mouth Every Day Kirstin, Capsules [employer] OFFICER Calcium take one tablet by 60tabs Ladan, 04/05/2015 Carbonate-Vitamin D mouth twice a day SEKOU Fulton [id number]-Gchi Tablets Levothyroxine Sodium Take One Tablet By 90tabs Cassandra Tovar, 04/05/2015 Mouth Every Day PNP-BC, L[employer] OFFICER, 75mcg Tablets Ibclc Losartan Potassium Take One Tablet By 90tabs Ladan, 12/23/2013 50mg Mouth Every Day Tracyferangelika, Tablets [employer] OFFICER Albuterol Sulfate nebulized every 4 75ml Kim, 04/28/2013 hours as needed Iris Rowland (2.5mg/3ML) 0.083% Nebulizer Fluoxetine HCL take one capsule 90caps Clune, 09/04/2012 40mg by mouth every day Kirstin, Capsules with 20mg for 60mg [employer] OFFICER total Tramadol HCL 2 po hs Hinkle,Qi 50mg Tablets Trazodone HCL Take Two Tablets 90tabs F43.10 Clune, 100mg By Mouth AT [facility], Tablets Bedtime L[employer] OFFICER Gabapentin taking 2 tabs PO 270caps M79.7 Clune, 300mg bid *prescribed by Kirstin, Capsules family counseling [employer] OFFIC[employer] services Hydroxyzine HCL Take Two Tablets 60tabs Clune, 50mg By Mouth AT [facility], Tablets Bedtime L[employer]ICER Omeprazole Take One Capsule 30caps Clune, 20mg By Mouth Every Day Kirstin, Capsules DR Maximum Daily Dose L[employer] OFFICER = 1 Capsule Terazosin HCL take one capsule 90caps I10 Clune, 10mg by mouth every day Jenmelissaferangelika, Capsules maximum daily dose L[employer] OFFICER = 1 capsule Atorvastatin Calcium Take One Tablet By 30tabs Clune, Mouth Every Day Jenferleijenniffer, 40mg Tablets L[employer] OFFICER Verapamil HCL Take One Tablet By 60tabs Clune, 120mg Mouth Twice A Day Tracyferleigh, Tablets [employer] OFFICER Methocarbamol Unknown 500mg Tablets Medications Administered in [...] CPT Code Status Date Vaccine Lot # 84287 Given 09/02/2018 Influenza Virus Vaccine, Quadrivalent, 36 Mos+, [id number] .5ML 47053 Given 11/29/2016 Influenza Virus Vaccine Split Virus Use For [id number] Individual 3Yr Older 80718 Given 05/29/2016 Tdap injection [id number] Q2038 Given 09/03/2015 Influenza Vaccine (Fluzone) Age 3 And Older [id number] 70077 Given 09/03/2015 Pneumococcal Conjugate Vaccine 13 Valent For [id number] Intramuscular Use 09799 Given 08/26/2014 flu vaccination 12040 Given 11/26/2012 flu vaccination 26282 Given 09/26/2011 Pneumovax Injection 55335 Given 09/26/2011 flu vaccination 61791 Given 07/27/2010 flu vaccination 26093 Given 12/17/2009 flu vaccination 48286 Given 12/17/2009 H1N1 Immuniation Adminstration 56939 Given 12/17/2009 H1N1 Immuniation Adminstration 55613 Given 09/23/2008 flu vaccination 32245 Given 11/23/2005 flu vaccination Vital Signs Date Vital Result Comment 07/15/2019 11:15am BP Systolic Sitting Left Arm 149 mmHg BP Diastolic Sitting Left Arm 91 mmHg Body Temperature 97.9 F Heart Rate 81 /min Respiratory Rate 19 /min Height 63 inches 5'3" Weight 219.00 lb BMI (Body Mass Index) 38.8 kg/m2 BSA (Body Surface Area) 2.01 m2 Schneider body weight in kilograms 52 kg Pain Level 8 lower back and hip/leg 04/01/2019 10:36am BP Systolic 142 mmHg BP Diastolic 80 mmHg Heart Rate 89 /min Respiratory Rate 18 /min Height 63 inches 5'3" Weight 222.00 lb BMI (Body Mass Index) 39.3 kg/m2 BSA (Body Surface Area) 2.02 m2 Schneider body weight in kilograms 52 kg O2 % BldC Oximetry 98 % Results Test Date Facility Test Result H/L Range Note Comprehensive 07/15/[address] [facility] [address] Glucose 96 mg/dL Normal 74-106 1 Metabolic Panel [address] [place] [address] [phone] BUN 13 mg/dL Normal 7-18 Creatinine 0.9 [...] 129 U/L High 45-117 Laboratory test 07/15/[address] Thyroid Stim 2.95 Normal 0.30 -4.[address] [place] [address] Hormone uIU/[place] [address] [phone] LDL Cholesterol 07/15/[address] Cholesterol 190 mg/dL <200 4 Profile [address] [place], [place] [address]38 [phone] Triglycerides 72 mg/dL <150 5 HDL Cholesterol 99 mg/dL >40 6 LDL-Cholesterol 77 mg/dL < 100 7 Laboratory test 03/11/[address] C-Reactive 3.8 mg/L High < 3.0 [address] [place] [address] Protein,Quant [place], [place] [address] [phone] Lyme Igg & Igm 03/11/[address] Lyme AB Igg By . By Western Blot [address] [facility] Western Blot [place], [place] [address] [phone] P93 AB Absent . P66 AB Absent [...] Interpretation Negative . 10 Laboratory test 03/11/[address] [facility] [address] Vitamin D,1,25 38.1 pg/mL 19.9-79.3 11 finding [address] [place] [address] [phone] Thyroid Stim Hormone 2.07 uIU/mL Normal 0.30-4.20 [...] are those recommended by CDC/ASTPHLD. p23=Osp C, w87=hdhtrjicr Note: Sera from individuals with the following may cross react in the Lyme Western Blot assays: other spirochetal diseases (periodontal disease, leptospirosis, relapsing fever, yaws, and pinta); connective autoimmune (Rheumatoid Arthritis and Systemic Lupus Erythematosus and also individuals with Antinuclear Antibody); other infections ([place] Spotted Fever; Jacob-Holland Virus, and Cytomegalovirus). 11 Performed at: [address] [id number] [employer] Supervisor: Brandt Cates MD, Phone: [phone] 12 This result was obtained with an ESR method that is not based on the standard Westergren Method. When comparing results obtained from the traditional Westergren ESR and this method it is important to refer to the reference range for each method. Method: Capillary Photometry 13 Negative <1:80 Borderline 1:80 Positive >1:80 Performed at: [address] [id number] [employer] Supervisor: Toya Hanley MD, Phone: [phone] Procedures Date Code Description Status 05/28/2018 [id number] Mammogram Completed 05/21/2014 [id number] Colonoscopy Completed Medical Devices Description No Information Available Encounters Type Date Location Provider Dx Diagnosis Office Visit 07/15/2019 Family Medicine Ldaan, Z00.01 Encounter for 11:30a [address] Kirstin, general adult [employer] medical exam w abnormal findings I45.10 Unspecified right bundle-branch block I10 Essential (primary) hypertension Z01.818 Encounter for other preprocedural examination M25.552 Pain in left hip F43.10 Post-traumatic stress disorder, unspecified Office Visit 04/01/2019 10:30a Family Medicine Kirstin Pickering, M79.[address] [employer] F43.10 Post-traumatic stress disorder, unspecified M25.562 Pain in left knee Office Visit 03/11/2019 11:15a Family Medicine Kirstin Pickering, M25.[address] [employer] left knee M25.541 Pain in joints of right hand M25.542 Pain in joints of left hand Assessments Date Code Description Provider 07/15/2019 Z00.01 Encounter for general adult medical Kirstin Pickering, [employer] examination with abnormal findings 07/15/2019 I45.10 Unspecified right bundle-branch block Kirstin Pickering , [employer]ICER 07/15/2019 I10 Essential (primary) hypertension Kirstin Pickering, [employer] OFFICER 07/15/2019 Z01.818 Encounter for other preprocedural Karolyn Pickeringnifiordaliza, [employer]IC[employer] examination 07/15/2019 M25.552 Pain in left hip Kirstin Pickering, [employer]IC[employer] 07/15/2019 F43.10 Post-traumatic stress disorder, Karolyn Pickeringniferangelika, [employer]ICER unspecified 04/01/2019 M79.7 Fibromyalgia Karolyn Pickeringnifiordaliza, [employer]ICER 04/01/2019 F43.10 Post-traumatic stress disorder, Ladan, Jennifermarthagh, L[employer] OFFICER unspecified 04/01/2019 M25.562 Pain in left knee Kirstin Pickering, [employer]IC[employer] 03/11/2019 M25.562 Pain in left knee Ladan KarolynconnorSEKOU carney 03/11/2019 M25.541 Pain in joints of right hand Ladan, KarolynconnorSEKOU carney 03/11/2019 M25.542 Pain in joints of left hand Ladan, SEKOU [place] Plan of Treatment Future Appointment(s):11/10/2019 1:15 pm - Kirstin Pickering FNP at [facility] RD08/07/2019 8:20 am - Rivera Suarez PA at Cardiology [id number]/15/2019 - Kirstin Pickering, SEKOUZ00.01 Encounter for general adult medical examination with abnormal findingsComments:Immunizations reviewed and up to date - encourage yearly flu shotdepression screening negative but with known anxiety/PTSD as noted belowPap due olonoscopy 05/21/2014 repeat Mammogram - was done as per patient will need to get copy of reportFollow up:3- 4 months f/u of chronic medical ezacnaC28.10 Unspecified right bundle-branch blockNew Orders:Echocardiogram, Ordered: 07/15/19Comments:has cardiology appt for 08/07/19 for cardiac clearance. Will be scheduled for echo prior to apptI10 Essential (primary) hypertensionNew Orders:Echocardiogram, Ordered: Comments:Blood pressure elevated today as well as at previous visit - however w/new EKG findings, and with cardiology appt already scheduled will let cardiologists make hbujdfktfidP23.818 Encounter for other preprocedural examinationNew Orders:Echocardiogram, Ordered: 07/15/19Comments:EKG shows new onset RBBB - has appt for cardiac clearance Labs done and unconcerning at this time. Other than above mentioned cardiac concern, and existing obesity which does place her at a higher risk for the proposed surgery - she is doing well and pending cardiac clearance, cleared.M25.552 Pain in left hipF43.10 Post- traumatic stress disorder, unspecifiedComments:would like to consider coming off some medications - feels she is doing well without increased anxiety. Will continue to monitor while she goes through her surgeries and then consider medication changes AFTERFluoxetine 60 mg dailyGabapentin 300 mg 2 tabs BIDHydroxyzine 50 mg - two tabs PO at HS Trazodone 100 mg - sleepmay consider decreasing hydroxyzine Functional Status Functional Condition Comment Date Status Glasses Active Independent with all ADL's Active Standard cane is used to ambulate Active Cpap Active Hearing Aid, left ear Active Mental Status Description No Information Available Referrals Refer to Reason for Referral Status Appt Date Jose Alberto Dickerson MD fibromyalgia management Sent 07/08/2019 [address] [place] [address] [place] [address] [phone]
--- OUTSIDE RECORDS SUMMARY | 2019-08-14 10:45 | XMS REPORT | Continuity of Care Document ---
:1955 External Reference #:[id number] Author Name Fiona Sheppard Care Team Providers Name Role Phone Boby Wilde MD - Orthopaedic Care Team Information Redrawer Surgery Kirstin Pickering NP - Nurse Care Team Information Redrawer [phone] Practitioner Problems Active Problems Provider Date Benign [...] by mouth every 90tabs Ladan, 05/31/2018 day Jenniferleigh, Tablets MORTGAGE MANAGER Fluoxetine HCL Take One Capsule 90caps F43.10 [place], 03/12/2018 20mg By Mouth Every Day Trcayferangelika, Capsules With 40MG Capsule MORTGAGE MANAGER For A Total Daily Dose Of 60MG Ferrous Gluconate Take One Tablet By 60tabs Ladan, 02/08/2017 Mouth Twice A Day Kirstin 324(38Fe) mg Tablets MORTGAGE MANAGER Aspirin chew one tablet by 30units Ladan, 01/09/2017 81mg Chewtabs mouth every day Jennifermarthagh, MORTGAGE MANAGER Fish Oil Take One Capsule 30caps Ladan, 07/09/2015 1000mg By Mouth Every Day Tracyferangelika, Capsules MORTGAGE MANAGER Calcium take one tablet by 60tabs Ladan, 04/05/2015 Carbonate-Vitamin D mouth twice a day Tracyferangelika, MORTGAGE MANAGER [phone] Tablets Levothyroxine Sodium Take One Tablet By 90tabs Cassandra Tovar, 04/05/2015 Mouth Every Day PNP-BC, MORTGAGE MANAGER, 75mcg Tablets Ibclc Losartan Potassium Take One Tablet By 90tabs Ladan, 12/23/2013 50mg Mouth Every Day Jenniferleigh, Tablets MORTGAGE MANAGER Albuterol Sulfate nebulized every 4 75ml Kim, 04/28/2013 hours as needed Janett, M.D. (2.5mg/3ML) 0.083% Nebulizer Fluoxetine HCL take one capsule 90caps Clune, 09/04/2012 40mg by mouth every day Kirstin, Capsules with 20mg for 60mg MORTGAGE MANAGER total Tramadol HCL 2 po hs Hinkle,Qi 50mg Tablets Trazodone HCL Take Two Tablets 90tabs F43.10 [place]une, 100mg By Mouth AT [facility], Tablets Bedtime MORTGAGE MANAGER Gabapentin taking 2 tabs PO 270caps M79.7 Clune, 300mg bid *prescribed by Kirstin, [facility] MORTGAGE MANAGER services Hydroxyzine HCL Take Two Tablets 60tabs Clune, 50mg By Mouth AT [facility], Tablets Bedtime MORTGAGE MANAGER Omeprazole Take One Capsule 30caps Clune, 20mg By Mouth Every Day Kirstin, Capsules DR Maximum Daily Dose MORTGAGE MANAGER = 1 Capsule Terazosin HCL take one capsule 90caps I10 Clune, 10mg by mouth every day Kirstin, Capsules maximum daily dose MORTGAGE MANAGER = 1 capsule Atorvastatin Calcium Take One Tablet By 30tabs Clune, Mouth Every Day Kirstin, 40mg Tablets MORTGAGE MANAGER Verapamil HCL Take One Tablet By 60tabs Clune, 120mg Mouth Twice A Day Kirstin, Tablets MORTGAGE MANAGER Methocarbamol Unknown 500mg Tablets Medications Administered in [...] CPT Code Status Date Vaccine Lot # [id number] Given 09/02/2018 Influenza Virus Vaccine, Quadrivalent, 36 Mos+, [id number] .[id number] 30809 Given 11/29/2016 Influenza Virus Vaccine Split Virus Use For [id number] Individual 3Yr Older 77445 Given 05/29/2016 Tdap injection [id number] Q2038 Given 09/03/2015 Influenza Vaccine (Fluzone) Age 3 And Older [id number] 13511 Given 09/03/2015 Pneumococcal Conjugate Vaccine 13 Valent For [id number] Intramuscular Use 44344 Given 08/26/2014 flu vaccination 14107 Given 11/26/2012 flu vaccination 18843 Given 09/26/2011 Pneumovax Injection 47859 Given 09/26/2011 flu vaccination 41878 Given 07/27/2010 flu vaccination 34094 Given 12/17/2009 flu vaccination 29447 Given 12/17/2009 H1N1 Immuniation Adminstration 80190 Given 12/17/2009 H1N1 Immuniation Adminstration 13210 Given 09/23/2008 flu vaccination 68527 Given 11/23/2005 flu vaccination Vital Signs Date Vital Result Comment 07/15/2019 11:15am BP Systolic Sitting Left Arm 149 mmHg BP Diastolic Sitting Left Arm 91 mmHg Body Temperature 97.9 F Heart Rate 81 /min Respiratory Rate 19 /min Height 63 inches 5'3" Weight 219.00 lb BMI (Body Mass Index) 38.8 kg/m2 BSA (Body Surface Area) 2.01 m2 [place] body weight in kilograms 52 kg Pain Level 8 lower back and hip/leg 04/01/2019 10:36am BP Systolic 142 mmHg BP Diastolic 80 mmHg Heart Rate 89 /min Respiratory Rate 18 /min Height 63 inches 5'3" Weight 222.00 lb BMI (Body Mass Index) 39.3 kg/m2 BSA (Body Surface Area) 2.02 m2 [place] body weight in kilograms 52 kg O2 % BldC Oximetry 98 % Results Test Date Facility Test Result H/L Range Note Comprehensive 07/15/2019 [facility] [address] Glucose 96 mg/dL Normal 74-106 1 Metabolic Panel [address] [place] [address] [phone] BUN 13 mg/dL Normal 7-18 Creatinine 0.9 [...] 129 U/L High 45-117 Laboratory test 07/15/[address] Thyroid Stim 2.95 Normal 0.30 -4.20 finding [address] [facility] Hormone uIU/[place] [address] [phone] LDL Cholesterol 07/15/[address] Cholesterol 190 mg/dL <200 4 Profile [address] [place], [place] [address] [phone] Triglycerides 72 mg/dL <150 5 HDL Cholesterol 99 mg/dL >40 6 LDL-Cholesterol 77 mg/dL < 100 7 Laboratory test 03/11/[address] C-Reactive 3.8 mg/L High < 3.0 [address] [place] [address] Protein,Quant [place], [place] [address] [phone] Lyme Igg & Igm 03/11/[address] Lyme AB Igg By . By Western Blot [address] [facility] Western Blot [place], [place] [address] [phone] P93 AB Absent . P66 AB Absent [...] Interpretation Negative . 10 Laboratory test 03/11/[address] Vitamin D,1,25 38.1 pg/mL 19.9-79.3 11 finding [address] [place] [address] [phone] Thyroid Stim Hormone 2.07 uIU/mL Normal 0.30-4.20 [...] are those recommended by CDC/ASTPHLD. p23=Osp C, n14=zwfyseyah Note: Sera from individuals with the following may cross react in the Lyme Western Blot assays: other spirochetal diseases (periodontal disease, leptospirosis, relapsing fever, yaws, and pinta); connective autoimmune (Rheumatoid Arthritis and Systemic Lupus Erythematosus and also individuals with Antinuclear Antibody); other infections (Bunkie Spotted Fever; Jacob-Holland Virus, and Cytomegalovirus). 11 Performed at: [address] [id number] Professor Of Forest Planning: Brandt Cates MD, Phone: [phone] 12 This result was obtained with an ESR method that is not based on the standard Westergren Method. When comparing results obtained from the traditional Westergren ESR and this method it is important to refer to the reference range for each method. Method: Capillary Photometry 13 Negative <1:80 Borderline 1:80 Positive >1:80 Performed at: [address] [id number] Professor Of Forest Planning: Toya Hanley MD, Phone: [phone] Procedures Date Code Description Status 07/15/2019 19651 EKG-Tracing And Report Completed 05/28/2018 20070517 Mammogram Completed 05/21/2014 71267516 Colonoscopy Completed Medical Devices Description No Information Available Encounters Type Date Location Provider Dx Diagnosis Office Visit 07/15/2019 Family Marcus Pickering, Z00.01 Encounter for 11:30a [address] Kirstin, general adult MORTGAGE MANAGER medical exam w abnormal findings I45.10 Unspecified right bundle-branch block I10 Essential (primary) hypertension F43.10 Post-traumatic stress disorder, unspecified M25.552 Pain in left hip Z01.818 Encounter for other preprocedural examination Office Visit 04/01/2019 10:30a Family Medicine Kirstin Pickering, M79.[address] MORTGAGE MANAGER F43.10 Post-traumatic stress disorder, unspecified M25.562 Pain in left knee Office Visit 03/11/2019 11:15a Family Medicine Kirstin Pickering, M25.[address] MORTGAGE MANAGER left knee M25.541 Pain in joints of right hand M25.542 Pain in joints of left hand Assessments Date Code Description Provider 07/15/2019 Z00.01 Encounter for general adult medical Kirstin Pickering, MORTGAGE MANAGER examination with abnormal findings 07/15/2019 I45.10 Unspecified right bundle-branch block Kirstin Pickering , MORTGAGE MANAGER 07/15/2019 I10 Essential (primary) hypertension Kirstin Pickering, MORTGAGE MANAGER 07/15/2019 F43.10 Post-traumatic stress disorder, Karolyn Pickeringniferangelika, MORTGAGE MANAGER unspecified 07/15/2019 M25.552 Pain in left hip Kirstin Pickering, MORTGAGE MANAGER 07/15/2019 Z01.818 Encounter for other preprocedural Kirstin Pickering, MORTGAGE MANAGER examination 04/01/2019 M79.7 Fibromyalgia Kirstin Pickering, MORTGAGE MANAGER 04/01/2019 F43.10 Post-traumatic stress disorder, Karolyn Pickeringniferangelika, MORTGAGE MANAGER unspecified 04/01/2019 M25.562 Pain in left knee Kristin Pickering, MORTGAGE MANAGER 03/11/2019 M25.562 Pain in left knee Kirstin PickeringSEKOU 03/11/2019 M25.541 Pain in joints of right hand Kirstin PickeringSEKOU 03/11/2019 M25.542 Pain in joints of left hand Vero PickeringSEKOU carney Plan of Treatment Future Appointment(s):11/10/2019 1:15 pm - Kirstin Pickering FNP at [facility] RD08/07/2019 8:20 am - Rivera Suarez PA at Cardiology [id number]/15/2019 - Ladan KarolynconnorSEKOU carneyZ00.01 Encounter for general adult medical examination with abnormal findingsComments:Immunizations reviewed and up to date - encourage yearly flu shotdepression screening negative but with known anxiety/PTSD as noted belowPap due olonoscopy 05/21/2014 repeat Mammogram - was done as per patient will need to get copy of reportFollow up:3- 4 months f/u of chronic medical fvfxcoV62.10 Unspecified right bundle-branch blockNew Orders:Echocardiogram, Ordered: 07/15/19Comments:has cardiology appt for 08/07/19 for cardiac clearance. Will be scheduled for echo prior to apptI10 Essential (primary) hypertensionNew Orders:Echocardiogram, Ordered: Comments:Blood pressure elevated today as well as at previous visit - however w/new EKG findings, and with cardiology appt already scheduled will let cardiologists make gtbmipgqhvpH58.10 Post-traumatic stress disorder, unspecifiedComments:would like to consider coming off some medications - feels she is doing well without increased anxiety. Will continue to monitor while she goes through her surgeries and then consider medication changes AFTERFluoxetine 60 mg dailyGabapentin 300 mg 2 tabs BIDHydroxyzine 50 mg - two tabs PO at HS Trazodone 100 mg - sleepmay consider decreasing [id number] Pain in left hipZ01.818 Encounter for other [...] Dickerson MD fibromyalgia management Sent 07/08/2019 [address] [facility] [place] [address] [place] [address] [phone]
--- OUTSIDE RECORDS SUMMARY | 2019-08-14 10:45 | XMS REPORT | Continuity of Care Document ---
:1955 External Reference #:[id number] Author Name Jaqui Dixon M.D. (transmitted by agent of provider Fabi Keith) Address [address] [place] [address] [place] [address] Care Team Providers Name Role Phone Kirstin Pickering FNP - Family Care Team Information Screen Printing Loader Unloader Problems Active Problems Provider Date Localized, primary osteoarthritis of the pelvic Jaqui Dixon M.D. Onset: region and thigh Sprain of lateral collateral ligament of knee Jaqui Dixon M.D. Onset: 04/09 Sprain of medial collateral ligament of knee Jaqui Dixon M.D. Onset: 2018 Tibialis tendinitis Ronnie Ulloa MD Onset: 11/25/2018 Arthroplasty of knee Jaqui Dixon M.D. Onset: 11/04/2018 Social History Type Date Description Comments Sex Unknown Cigarette Use Quit 23 Years Ago Tobacco Use Start: Unknown Never Smoked Cigars Tobacco Use Start: Unknown Never Smoked A Pipe Smokeless Tobacco Never Used Smokeless Tobacco ETOH Use Rarely consumes alcohol Tobacco Use Start: Unknown Patient has never smoked Smoking Status Reviewed: 07/02/19 Patient has never smoked Exercise Type/Frequency Exercises regularly Allergies, Adverse Reactions, Alerts Description No Known Drug Allergies Medications Active Medications SIG Qnty Indications Ordering Provider Date Meloxicam 1 by mouth 14tabs M25.562 Jaqui Dixon, 04/09/2019 15mg Tablets every day M.D. Claritin 1 po qd prn 30tabs Unknown 10mg Tablets Levothyroxine Sodium 1 po qd 90tabs Unknown 75mcg Tablets Prozac 1 by mouth Unknown 60mg Capsules every day Tramadol HCL ER 1 by mouth Unknown (Biphasic) every day 200mg Tablets ER 24HR Verapamil HCL ER Daily Unknown 150mg Aspirin Adult Low Dose 1 by mouth Unknown 81mg every day Tablets DR Reynolds Description No Information Available Vital Signs Date Vital Result Comment 07/02/2019 10:48am Height 62 inches 5'2" Weight 220.00 lb Heart Rate 64 /min Body Temperature 95.9 F O2 % BldC Oximetry 97 % BMI (Body Mass Index) 40.2 kg/m2 04/09/2019 11:07am Height 62 inches 5'2" Weight 218.00 lb Heart Rate 64 /min BP Systolic 142 mmHg BP Diastolic 98 mmHg Respiratory Rate 18 /min Body Temperature 97.0 F Pain Level 8 BMI (Body Mass Index) 39.9 kg/m2 Results Description No Information Available Procedures Description No Information Available Medical Devices Description No Information Available Encounters Type Date Location Provider Dx Diagnosis Office Visit 04/09/2019 Orthopedic Jaqui Dixon, M25.562 Pain in left knee 10:30a [facility] M25.462 Effusion, left knee Z96.652 Presence of left artificial knee joint S83.412A Sprain of medial collateral ligament of left knee, init S83.422A Sprain of lateral collateral ligament of left knee, init Assessments Date Code Description Provider 07/02/2019 M25.552 Pain in left hip Jaqui Dixon M.D. 07/02/2019 M16.12 Unilateral primary osteoarthritis, left hip Jaqui Dixon M.D. 04/09/2019 M25.562 Pain in left knee Jaqui Dixon M.D. 04/09/2019 M25.462 Effusion, left knee Jaqui Dixon M.D. 04/09/2019 Z96.652 Presence of left artificial knee joint Jaqui Dixon M.D. 04/09/2019 S83.412A Sprain of medial collateral ligament of left Jaqui Dixon M.D. knee, initial e 04/09/2019 S83.422A Sprain of lateral collateral ligament of left Jaqui Dixon M.D. knee, initial Plan of Treatment Future Appointment(s):08/04/2019 8:30 am - Ja[facility]08/[facility] 10:00 am - Jose Alberto Dickerson M.D. at [facility]07/02/2019 - Jaqui Dixon M.D.M25.552 Pain in left hipFollow up: Follow up: 7-10 days before hsabuifF09.12 Unilateral primary osteoarthritis, left hip Functional Status Description No Information Available Mental Status Description No Information Available Referrals Description No Information Available
[2019-08-14] MEDS ORDERED: Gabapentin CAP(*) 300 MG ONE (11:35)
[2019-08-14] MEDS ORDERED: Famotidine IV* 10 MG/ML 2 ML (20 mg) ONE (11:35)
[2019-08-14] MEDS ORDERED: Buffered Lidocaine 1% SYRIN* 1 ML/SYRINGE INTRADERM ONE (11:35)
[2019-08-14] MEDS ORDERED: ceFAZolin 2 GM PREMIX in ORs 2 GM/50 ML BAG ONE (11:35)
[2019-08-14] MEDS ORDERED: Midazolam* 1 MG/ML 5 ML VIAL (5 MG) ONE (11:41)
[2019-08-14] MEDS: Gabapentin CAP(*) 300 MG PO ONE ×2 (11:48→11:54)
[2019-08-14] MEDS ORDERED: KETAMINE HCL* 50 MG/ML 10 ML VIAL ONE (14:02)
[2019-08-14] MEDS ORDERED: Propofol* 10 MG/ML 20 ML BTL ONE ×2 (14:17→14:58)
[2019-08-14] MEDS ORDERED: Ketorolac INJ* 30 MG/ML 1 ML VIAL ONE (14:17)
[2019-08-14] MEDS ORDERED: Ondansetron INJ* 2 MG/ML VIAL ONE (14:17)
[2019-08-14] MEDS ORDERED: hydrALAZINE IV* 20 MG/ML VIAL ONE ×2 (14:17→15:36)
[2019-08-14] MEDS ORDERED: Naloxone* 0.4 MG/ML 1 ML VIAL IV PRN (15:14)
[2019-08-14] MEDS ORDERED: oxyCODONE TAB* 5 MG TAB PO PRN ×2 (15:14→16:33)
[2019-08-14] MEDS ORDERED: Acetaminophen TAB* 325 MG PO PRN (15:14)
[2019-08-14] MEDS ORDERED: DiMENhydriNATE IV* 50 MG/ML VIAL IV PUSH PRN (15:14)
[2019-08-14] MEDS ORDERED: Gabapentin CAP(*) 100 MG PO ONE (15:16)
[2019-08-14] MEDS ORDERED: Bupivacaine 0.25% SDV PF* 10 ML VIAL INJ ONE (16:07)
[2019-08-14] MEDS ORDERED: oxyCODONE/Acetamin 5/325 MG* TAB PO PRN ×2 (16:33)
[2019-08-14] MEDS ORDERED: Magnesium Hydroxide LIQ* 30 ML UDC PO PRN (16:33)
[2019-08-14] MEDS ORDERED: diPHENhydraMINE PO* 25 MG PO PRN (16:33)
[2019-08-14] MEDS ORDERED: diPHENhydraMINE IV* 50 MG/ML 1 ml VIAL (BENADRYL) IV PRN (16:33)
[2019-08-14] MEDS ORDERED: Ondansetron INJ* 2 MG/ML VIAL IV PRN (16:33)
[2019-08-14] MEDS ORDERED: Ondansetron ODT TAB* 4 MG PO PRN (16:33)
[2019-08-14] MEDS ORDERED: Gabapentin CAP(*) 100 MG ONE (17:01)
[2019-08-14] MEDS: Lactated Ringers 1000 ML Bag* 1,000 ML IV SCH (18:09)
--- NOTE | 2019-08-14 19:13 | OP ---
Operative Report - Blank - Operative Report Date of Operation: 08/14/19 Note: LOUIE CORLEY 1955 Date Of Surgery: 08/14/19 Jaqui Dixon MD Sole Splitter: Remedios NAVARRO did help throughout the procedure with preparation of the hip, wound retraction, manipulation of the hip, and wound closure. Anesthesiologist: Bianca Palm MD Anesthesia Type: Spinal Preoperative Diagnosis: Left severe degenerative osteoarthritis of the hip Postoperative Diagnosis: As above with near complete abductor tendon tear Procedure Performed: Left Total Hip Arthroplasty and Abductor tendon primary repair. Complications: None Specimen: Femoral head and acetabular reamings sent to pathology. Hardware used: This is uncemented Sonicbids total hip arthroplasty hardware for the femur a size 4 accolade II with 127 neck femoral component, for the acetabulum a size 50D trident II tritanium cluster hole shell, one 15mm screw, for the insert a size 38D MDM cementless liner, MDM X3 22.2/38D insert, and for the femoral head a size 22.2 +0 LFIT V40 femoral head. Brief history/Indication: LOUIE CORLEY was known in clinic and had a history of severe left hip pain. She failed conservative treatment with anti- inflammatories, pain pills, intra-articular injections and physical therapy. She elected to undergo left total hip arthroplasty due to continued pain and decreased quality of life. Radiographs showed severe end stage osteoarthritis of the hip with bone on bone contact. Informed consent was obtained from the patient. She understood the risks of surgery included but were not limited to: bleeding, infection, damage to nearby structures, intraoperative fracture, nerve palsy, failure of the hardware, early loosening, stiffness or loss of motion, dislocation, leg length discrepancy, anesthesia complications, stroke, heart attack, blood clot and . She wished to proceed. Intra-Operative findings: Intraoperatively the patient was noted to have severe loss of cartilage of the acetabulum and femoral head. She also had a near complete tear of her abductor tendons off the greater trochanter with muscle atrophy and proximal retraction. MDM implant was chosen to increase postoperative hip stability. Description of the Procedure: LOUIE CORLEY was identified in the preanesthesia unit. Her left hip was marked as the correct operative side. Informed consent was signed and placed in the chart. The patient was taken to the operating room and placed under anesthesia without complication. A cage catheter was placed. The patient was placed on the peg board with all bony prominences well padded. The left lower extremity was prepped and draped in the usual sterile fashion. Preoperative time -out was made to correctly identify the patient, side and site. Appropriate intraoperative antibiotics were given within one hour of incision. A standard posterior incision was made and carried sharply down to the lateral fascia. A new 10 blade was used to make an incision in the fascia in line with the skin incision. A charnley retractor was placed. There was a severe tear of the abductor tendons with proximal retraction and atrophy. The piriformis and conjoined tendons were identified and elevated off the posterolateral femur using electrocautery. These were tagged with number 5 Ethibond. Next electrocautery was used to make a posterolateral capsular flap and this was tagged with number 5 Ethibonds. The hip was carefully dislocated. Lesser trochanter to the center of the femoral head was measured at 55 mm. The oscillating saw was used to make the femoral neck cut. The femoral head was carefully removed. The femur was retracted anteriorly and the acetabular retractors were placed. Long-handled knife was used to sharply remove any remaining labrum from the acetabular rim. The acetabulum was sequentially reamed up to a size 50. A bleeding subchondral bone bed was obtained. A trial liner was placed and had excellent fit and stability. A 50D trident II tritanium cup with one 15 mm screw was placed and had excellent stability with appropriate anteversion and abduction angle. A size 38D MDM cementless liner was impacted into the acetabular shell. The liner was checked for stability and was stable. Next attention was turned to preparation of the femoral canal. A canal finder was used to enter the proximal femur. The femoral canal was sequentially broached up to a size 4 femoral broach trial. A trial neck and 22.2 +0 trial femoral head was chosen. Lesser trochanter to center of the femoral head measurement was satisfactory. The hip was reduced and taken through a range of motion. The hip was stable in all positions with good soft tissue tension and appropriate leg lengths. The hip was dislocated and all trials were removed. The final implant chosen was a accolade II size 4 with 127 neck angle. This stem was impacted into the femoral canal without difficulty. The stem was stable with appropriate anteversion. The femoral head chosen was a 22.2 + 0 with 22.2/38D MDM X3 liner insert. The head was impacted onto the femoral neck without difficulty. The final lesser trochanter to center of the femoral head measurement was satisfactory. The hip was reduced and taken through a range of motion. The hip was stable in all positions with good soft tissue tension and appropriate leg lengths. The hip was copiously irrigated with sterile saline. The previously tagged capsule and tendons were repaired to the posterolateral femur through two trochanteric drill holes. Number 5 ethibond suture was used to repair the abductor tendon available to the greater trochanter. This was a primary repair. The lateral fascia layer was closed using number 1 vicryls. The rest of the incision was closed in a layered fashion using 0 and 2-0 vicryls. The skin was closed using 3-0 monocryl suture and Dermabond. Sterile adaptic, 4x4s and paper tape was used to cover the incision. The patients anesthesia was reversed without difficulty. She was taken to the PACU in stable condition. Intended weight-bearing will be as tolerated with posterior hip precautions.
--- NOTE | 2019-08-14 19:26 | CONS ---
HOSPITAL MEDICINE CONSULTATION REPORT: DATE OF CONSULT: 08/14/19 PROVIDER: Masha Mcmahon NP. ATTENDING PHYSICIAN: Jaqui Dixon MD. CONSULTING PHYSICIAN: Elvia Silva MD (dictated by Masha Mcmahon NP). REASON FOR CONSULT: Co-management of chronic medical conditions. HISTORY OF PRESENT ILLNESS: Ms. Joel is a 63-year-old female with a past medical history significant for hypertension, hyperlipidemia, fibromyalgia, hypothyroidism, chronic back pain, arthritis, GERD, and obesity who presented to [facility] for an elective left total hip arthroplasty with Dr. Dixon. Please see dictated H and P from MELANIE Peter, for complete details. In brief, the patient had ongoing pain and failed conservative measures; therefore, opted for an elective left total hip arthroplasty with Dr. Dixon. In the immediate postoperative period, the patient has no complaints. Preoperatively, the patient denied any fever, chills, or unintended weight loss. Denies any chest pain or edema. Denies any cough, hemoptysis, or shortness of breath. No nausea , vomiting, diarrhea, abdominal pain, gross hematuria, or dysuria. Denies any focal weakness, sensory loss, visual complaints, dysphagia, arthralgias, myalgias, rashes, lesions, or open sores. Denies any psychosis or anxiety. Due to her chronic medical conditions, hospital medicine was asked to see and evaluate her and help co-manage her care during her hospitalization. PAST MEDICAL HISTORY: Significant for: 1. Hypertension. 2. Hyperlipidemia. 3. Fibromyalgia. 4. Hypothyroid. 5. Morbid obesity. 6. Arthritis. 7. GERD. 8. Right bundle-branch block. PAST SURGICAL HISTORY: 1. Left shoulder. 2. Left total knee. 3. Right total knee with revision. 4. . 5. Carpal tunnel. 6. Bunion surgery. 7. Bilateral cataracts. MEDICATIONS: Home medications include: 1. Levothyroxine 75 mcg p.o. daily. 2. Prozac 60 mg p.o. daily. 3. Tramadol 50 mg 2 tabs at bedtime. 4. Aspirin 81 mg p.o. daily. 5. Hydroxyzine 100 mg p.o. at bedtime. 6. Omeprazole 20 mg p.o. daily. 7. Terazosin HCL 10 mg p.o. daily. 8. Methocarbamol 1000 mg p.o. b.i.d. 9. Multivitamin. 10. Ferrous gluconate 324 mg. 11. Fish oil 1000 mg. 12. Calcium carbonate 600/400 one tab p.o. daily. 13. Losartan 50 mg p.o. daily. 14. Albuterol sulfate inhaled every 4 hours as needed. 15. Atorvastatin 40 mg p.o. at bedtime. 16. Amlodipine 5 mg p.o. at bedtime. 17. Trazodone 200 mg at bedtime. ALLERGIES: To PERCOCET, causes hallucinations. SOCIAL HISTORY: The patient is a former smoker, quit smoking in 1986. She denies any alcohol or illicit drug use. Surrogate decision maker in the event she is unable to make her own decisions is her son, Franki. She is a full code. REVIEW OF SYSTEMS: An 11-point review of systems was completed. All pertinent positives are mentioned in the HPI; otherwise, were negative. PHYSICAL EXAMINATION: General: At this time, Ms. Joel is alert and oriented, resting on the hospital bed in PACU. She is a well-developed, well- nourished female. She is in no acute distress. Vital Signs: Temperature 97.0 , heart rate 88, respirations are 20, O2 saturation 95%, blood pressure 142/83. HEENT: Head is atraumatic, normocephalic. Eyes: EOMs are intact. Sclerae anicteric and not pale. Oral mucosa appeared to be moist. Neck is supple. Lungs are clear to auscultation bilaterally. No wheezes, rales, or rhonchi. Cardiac: S1, S2. Regular rate and rhythm. No murmurs, rubs, or gallops. Abdomen is soft and nontender. Bowel sounds are present x4. Extremities: She has a dressing dry and intact to her left hip. Pedal pulses are +2 bilaterally. She is able to move all 4 extremities. There is no clubbing or cyanosis. Neurologic: She is awake, alert, oriented x3. Speech is clear. Thought process is intact. There are no gross focal deficits. Skin is intact. LABORATORY DATA AND DIAGNOSTIC STUDIES: CBC from 08/04/19: WBCs were 6.7, RBCs 4.86, hemoglobin 11.6, hematocrit was 36, platelet count was 191. INR was 0.90. Urine was within normal limits. IMPRESSION AND PLAN: Ms. Joel is a 63-year-old female with a past medical history significant for hypertension, hyperlipidemia, fibromyalgia, hypothyroidism, morbid obesity, arthritis, and gastroesophageal reflux disease who presented to [facility] for an elective left total hip arthroplasty with Dr. Dixon. In the immediate postoperative period, the patient has no complaints. Hospital medicine was asked to consult due to chronic medical conditions. Our recommendations are as follows: 1. Status post left total hip arthroplasty. Management per orthopedics. PT/ OT per orthopedics. Bowel regimen per orthopedics. Pain management per orthopedics. DVT prophylaxis per orthopedics. 2. Hypertension. The patient should continue on her losartan 50 mg p.o. daily with holding parameters for systolic blood pressure less than 110. We will hold her amlodipine and reevaluate this in the morning as to whether to restart or not. 3. Hyperlipidemia. She should continue on atorvastatin 40 mg p.o. daily. 4. Hypothyroidism. She should continue on her levothyroxine 75 mcg p.o. daily. 5. Fibromyalgia. She can have her gabapentin 600 mg p.o. b.i.d. 6. Gastroesophageal reflux disease. She should continue on omeprazole as previously prescribed. 7. FEN. She can have a regular diet. 8. Code status. She is a full code. 9. DVT prophylaxis. As per orthopedics. TIME SPENT: Time spent on this consultation was 45 minutes, greater than half the time was spent at the bedside reviewing the events leading thus far to her hospitalization, performing physical exam, and reviewing my plan of care. I have discussed this with my attending, Dr. Elvia Silva; she is in agreement with my plan. MASHA MCMAHON, SCHOOL COUNSELLOR [id number]/[facility] #: [id number] DAREN
[2019-08-14] MEDS: Morphine INJ* 2 MG/ML 1 ML SYRINGE (TWO MG - NEW SYRINGE VERSION) IV PRN (20:05)
[2019-08-14] MEDS ORDERED: HYDROcodone/ACETAMIN 5-325 MG* 1 TAB PO ONE (20:51)
[2019-08-14] MEDS: Docusate CAP* 100 MG PO SCH (21:26)
[2019-08-14] MEDS: Gabapentin CAP(*) 300 MG PO SCH (21:26)
[2019-08-14] MEDS: Pantoprazole TAB * 40 MG TAB PO SCH (21:26)
[2019-08-14] MEDS: Atorvastatin* 40 MG TAB PO SCH (21:27)
[2019-08-14] MEDS: Magnesium Hydroxide LIQ* 30 ML UDC PO SCH (21:27)
[2019-08-14] MEDS: Terazosin CAP* 5 MG PO SCH (21:27)
[2019-08-14] MEDS: Acetaminophen TAB* 325 MG PO SCH (22:30)
[2019-08-14] MEDS: ceFAZolin 1 GM ADVAN(*) 1 GM in NS 0.9% 50 ML* 50 ML IVPB SCH (22:33)
[2019-08-15] MEDS: traMADol TAB* 50 MG PO PRN ×3 (01:14→11:18)
[2019-08-15] MEDS ORDERED: HYDROcodone/ACETAMIN 5-325 MG* 1 TAB PO ONE (02:25)
[2019-08-15] MEDS: Cyclobenzaprine TAB* 10 MG PO PRN (03:16)
[2019-08-15] MEDS: Lactated Ringers 1000 ML Bag* 1,000 ML IV SCH (04:15)
[2019-08-15 05:39] LABS: Hematocrit 29 % (35-47); Hemoglobin 9.5 g/dL (12.0-16.0); Mean Platelet Volume 8.4 fL (7.4-10.4); Platelet Count 152 10^3/uL (150-450)
[2019-08-15] MEDS: Acetaminophen TAB* 325 MG PO SCH ×3 (05:44→23:56)
[2019-08-15] MEDS: Levothyroxine TAB* 75 MCG TAB PO SCH (05:44)
[2019-08-15] MEDS: ceFAZolin 1 GM ADVAN(*) 1 GM in NS 0.9% 50 ML* 50 ML IVPB SCH ×2 (05:44→13:43)
[2019-08-15 05:55] LABS: Calcium 8.7 mg/dL (8.6-10.3); EGFR African American 87.4 (>60); EGFR Non-African American 72.2 (>60); Potassium 3.8 mmol/L (3.5-5.0)
[2019-08-15] MEDS: Morphine INJ* 2 MG/ML 1 ML SYRINGE (TWO MG - NEW SYRINGE VERSION) IV PRN ×2 (07:19→13:53)
[2019-08-15] MEDS: Magnesium Hydroxide LIQ* 30 ML UDC PO SCH ×2 (08:24→19:31)
[2019-08-15] MEDS: Vitamin THERAPEUTIC TAB PO SCH (08:24)
[2019-08-15] MEDS: Apixaban* 2.5 MG TAB PO SCH ×2 (08:24→19:30)
[2019-08-15] MEDS: FLUoxetine CAP* 20 MG PO SCH (08:24)
[2019-08-15] MEDS: Gabapentin CAP(*) 300 MG PO SCH ×2 (08:24→19:30)
[2019-08-15] MEDS: Docusate CAP* 100 MG PO SCH ×2 (08:24→19:31)
[2019-08-15] MEDS ORDERED: MULTIVITAMIN PO SCH (09:00)
[2019-08-15] MEDS ORDERED: HYDROcodone/ACETAMIN 5-325 MG* 1 TAB ONE (09:08)
[2019-08-15] MEDS ORDERED: HYDROcodone/ACETAMIN 5-325 MG* 1 TAB PO PRN (09:16)
--- NOTE | 2019-08-15 10:49 | PN ---
Subjective Date of Service: 08/15/19 Interval History: Patient reports that she is tolerating hydrocodone well, no reports of hallucinations. BP low this AM sbp 98 . Denies chest pain or shortness of breath. Denies fever or chill. Denies n/v/d. Family History: Unchanged from Admission Social History: Unchanged from Admission Past Medical History: Unchanged from Admission Objective Active Medications: Acetaminophen (Tylenol Tab*) 975 mg PO Q8HR [facility] Last Admin: 08/15/19 05:44 Dose: 975 mg Hydrocodone Bitart/Acetaminophen ([place]ideman 5-325 Tab*) 1 tab PO Q4H PRN PRN Reason: PAIN - MILD Hydrocodone Bitart/Acetaminophen ([place]ideman 5-325 Tab*) 2 tab PO Q4H PRN PRN Reason: .BREAKTHROUGH PAIN Apixaban (Eliquis*) 2.5 mg PO BID [facility] Last Admin: 08/15/19 08:24 Dose: 2.5 mg Atorvastatin Calcium (Lipitor*) 40 mg PO BEDTIME [facility] Last Admin: 08/14/19 21:27 Dose: 40 mg Bisacodyl (Dulcolax Supp*) 10 mg DC DAILY PRN PRN Reason: CONSTIPATION Cyclobenzaprine HCl (Flexeril Tab*) 10 mg PO Q6H PRN PRN Reason: SPASMS Last Admin: 08/15/19 03:16 Dose: 10 mg Diphenhydramine HCl (Benadryl Iv*) 25 mg IV Q6H PRN PRN Reason: PRURITIS Diphenhydramine HCl (Benadryl Po*) 25 mg PO Q6H PRN PRN Reason: PRURITIS Docusate Sodium (Colace Cap*) 100 mg PO BID [facility] Last Admin: 08/15/19 08:24 Dose: 100 mg Fluoxetine HCl (Prozac Cap*) 60 mg PO QAM [facility] Last Admin: 08/15/19 08:24 Dose: 60 mg Gabapentin (Neurontin Cap(*)) 600 mg PO BID [facility] Last Admin: 08/15/19 08:24 Dose: 600 mg Cefazolin Sodium 1 gm/ Sodium (Chloride) 50 mls @ 200 mls/hr IVPB Q8H [facility] Stop: 08/15/19 14:14 Last Admin: 08/15/19 05:44 Dose: 200 mls/hr Lactated Ringer's (Lactated Ringers 1000 Ml Bag*) 1,000 mls @ 100 mls/hr IV PER RATE [facility] Last Admin: 08/15/19 04:15 Dose: 100 mls/hr Influenza Virus Vaccine (Fluarix Quad [id number] Syr) 0.5 ml IM .ONCE ONE Stop: 08/16/19 09:01 Lactulose (Lactulose*) 30 ml PO BID PRN PRN Reason: CONSTIPATION Levothyroxine Sodium (Synthroid Tab*) 75 mcg PO 0600 [facility] Last Admin: 08/15/19 05:44 Dose: 75 mcg Losartan Potassium (Cozaar Tab*) 50 mg PO BEDTIME [facility] Magnesium Hydroxide (Milk Of Magnesia Liq*) 30 ml PO BID [facility] Last Admin: 08/15/19 08:24 Dose: 30 ml Magnesium Hydroxide (Milk Of Magnesia Liq*) 30 ml PO Q6H PRN PRN Reason: CONSTIPATION Morphine Sulfate (Morphine Inj (Syringe))*) 2 mg IV Q4H PRN PRN Reason: Pain - Unrelieved Last Admin: 08/15/19 07:19 Dose: 2 mg Multivitamins (Theragran Tab*) 1 tab PO DAILY [facility] Last Admin: 08/15/19 08:24 Dose: 1 tab Ondansetron HCl (Zofran Inj*) 4 mg IV Q6H PRN PRN Reason: NAUSEA Ondansetron HCl (Zofran Odt Tab*) 4 mg PO Q6H PRN PRN Reason: NAUSEA Pantoprazole Sodium (Protonix Tab*) 40 mg PO BEDTIME [facility] Last Admin: 08/14/19 21:26 Dose: 40 mg Terazosin HCl (Hytrin Cap*) 10 mg PO BEDTIME [facility] Last Admin: 08/14/19 21:27 Dose: 10 mg Tramadol HCl (Ultram*) 50 mg PO Q4H PRN PRN Reason: PAIN - MODERATE Tramadol HCl (Ultram*) 100 mg PO Q4H PRN PRN Reason: PAIN - SEVERE Last Admin: 08/15/19 05:44 Dose: 100 mg Vital Signs - 8 hr 08/15/19 08/15/19 08/15/19 03:11 03:16 03:17 Temperature 100.1 F Pulse Rate 88 Respiratory 16 22 22 Rate Blood Pressure 138/91 (mmHg) O2 Sat by Pulse 100 Oximetry 08/15/19 08/15/19 08/15/19 05:17 05:44 07:19 Temperature Pulse Rate Respiratory 18 18 18 Rate Blood Pressure (mmHg) O2 Sat by Pulse Oximetry 08/15/19 08/15/19 08/15/19 08:00 08:23 08:24 Temperature Pulse Rate Respiratory 16 18 18 Rate Blood Pressure (mmHg) O2 Sat by Pulse 97 Oximetry 08/15/19 08/15/19 08/15/19 08:32 09:09 10:41 Temperature 99.6 F Pulse Rate 88 Respiratory 16 18 18 Rate Blood Pressure 98/54 (mmHg) O2 Sat by Pulse 97 Oximetry Oxygen Devices in Use Now: None Appearance: appears comfortable sitting in the chair, no acute distress Eyes: No Scleral Icterus Ears/Nose/Mouth/Throat: Clear Oropharnyx, Mucous Membranes Moist Neck: NL Appearance and Movements; NL JVP, Trachea Midline Respiratory: Symmetrical Chest Expansion and Respiratory Effort, Clear to Auscultation Cardiovascular: No Edema Abdominal: NL Sounds; No Tenderness; No Distention Extremities: No Edema, No Clubbing, Cyanosis, - - dressing intact to left hip Skin: No Rash or Ulcers Neurological: Alert and Oriented x 3 Nutrition: Taking PO's Result Diagrams: 08/15/19 05:03 08/15/19 05:03 Assess/Plan/Problems-Billing Assessment: - Patient Problems (1) Status post left hip replacement Current Visit: Yes Status: Acute Code(s): Z96.642 - PRESENCE OF LEFT ARTIFICIAL HIP JOINT SNOMED Code(s): 449907703 Comment: management per orthopedics PT/OT per orthopedics pain management per orthopedics DVT prop per ortho bowel medications per orthopedics (2) HTN (hypertension) Current Visit: Yes Status: Acute Code(s): I10 - ESSENTIAL (PRIMARY) HYPERTENSION SNOMED Code(s): 42770251 Comment: - will hold norvasc for now SBP 98 - will continue Losartan at 1/2 dose 25 mg with holding for SBP less than 110 (3) Fibromyalgia Current Visit: Yes Status: Acute Code(s): M79.7 - FIBROMYALGIA SNOMED Code (s): 395134793 Comment: continue gabapentin (4) Hypothyroid Current Visit: Yes Status: Acute Code(s): E03.9 - HYPOTHYROIDISM, UNSPECIFIED SNOMED Code(s): 99877955 Comment: continue levothyroxine (5) GERD (gastroesophageal reflux disease) Current Visit: Yes Status: Acute Code(s): K21.9 - GASTRO-ESOPHAGEAL REFLUX DISEASE WITHOUT ESOPHAGITIS SNOMED Code(s): 719862324 Comment: continue protonix (6) DVT prophylaxis Current Visit: Yes Status: Acute Code(s): Z29.9 - ENCOUNTER FOR PROPHYLACTIC MEASURES, UNSPECIFIED SNOMED Code(s): 426930427 Comment: omari (7) Full code status Current Visit: Yes Status: Acute Code(s): Z78.9 - OTHER SPECIFIED HEALTH STATUS SNOMED Code(s): 623208360 Status and Disposition: disposition per ortho
--- NOTE | 2019-08-15 11:27 | PN ---
Progress Note - Progress Note Date of Service: 08/15/19 SOAP: Subjective: []Patient seen OOB in chair, having some moderate pain while up with therapy earlier today. She denies SOB, CP, dizziness, fever or chills. Objective: [] Vital Signs Temp 99.6 F 08/15/19 08:32 Pulse 88 08/15/19 08:32 Resp 18 08/15/19 11:20 BP 98/54 08/15/19 08:32 Pulse Ox 97 08/15/19 08:32 Intake & Output 08/14/19 08/15/19 08/15/19 18:59 06:59 18:59 Intake Total 1250 1470 Output Total 1750 200 Balance 1250 -280 -200 Weight 219 lb Intake: IV Fluids 1250 990 LR 1200 990 NS 50ML, Cefazolin 2G 50 IVPB 55 ABX - CEFAZOLIN 55 Oral 425 Output: Urine 200 Delgado 1750 Laboratory Results - last 24 hr 08/15/19 08/15/19 05:03 05:03 Hgb 9.5 L Hct 29 L Plt Count 152 MPV 8.4 Sodium 138 Potassium 3.8 Chloride 105 Carbon Dioxide 28 Anion Gap 5 BUN 12 Creatinine 0.80 Est GFR ( Amer) 87.4 Est GFR (Non-Af Amer) 72.2 BUN/Creatinine Ratio 15.0 Glucose 112 H Calcium 8.7 Left hip dressings dry and intact +Df left ankle sensation intact 2+ DP pulse Assessment: []s/p left total hip arthroplasty with abductor tendon repair , POD #1, Plan: []Pt feeling that she would like to wait until tomorrow to go home PT/OT- WBAT posterior hip precautions with added restriction of ABduction secondary to Abductor tendon repair Hydrocodone working best for pain control Possible discharge home 08/16
[2019-08-15] MEDS: HYDROcodone/ACETAMIN 5-325 MG* 1 TAB PO PRN ×2 (13:08→18:31)
[2019-08-15] MEDS: Terazosin CAP* 5 MG PO SCH (19:30)
[2019-08-15] MEDS: Atorvastatin* 40 MG TAB PO SCH (19:30)
[2019-08-15] MEDS: Pantoprazole TAB * 40 MG TAB PO SCH (19:31)
[2019-08-15] MEDS: Losartan TAB* 25 MG PO SCH (19:42)
[2019-08-15] MEDS ORDERED: Losartan TAB* 25 MG PO SCH (21:00)
[2019-08-16] MEDS: HYDROcodone/ACETAMIN 5-325 MG* 1 TAB PO PRN ×4 (03:28→18:08)
[2019-08-16] MEDS: traMADol TAB* 50 MG PO PRN ×2 (06:27→15:16)
[2019-08-16] MEDS: Levothyroxine TAB* 75 MCG TAB PO SCH (06:27)
[2019-08-16] MEDS: Acetaminophen TAB* 325 MG PO SCH ×3 (06:31→22:17)
[2019-08-16 06:40] LABS: Hematocrit 27 % (35-47); Hemoglobin 8.8 g/dL (12.0-16.0); Mean Platelet Volume 8.4 fL (7.4-10.4); Platelet Count 147 10^3/uL (150-450)
[2019-08-16] MEDS: Magnesium Hydroxide LIQ* 30 ML UDC PO SCH ×2 (08:34→22:17)
[2019-08-16] MEDS: Vitamin THERAPEUTIC TAB PO SCH (08:34)
[2019-08-16] MEDS: Docusate CAP* 100 MG PO SCH ×2 (08:34→22:12)
[2019-08-16] MEDS: Gabapentin CAP(*) 300 MG PO SCH ×2 (08:35→22:12)
[2019-08-16] MEDS: FLUoxetine CAP* 20 MG PO SCH (08:35)
[2019-08-16] MEDS: Apixaban* 2.5 MG TAB PO SCH ×2 (08:35→22:13)
--- NOTE | 2019-08-16 08:53 | PN ---
Progress Note - Progress Note Date of Service: 08/16/19 SOAP: Subjective: Pt. reports she is in severe pain left hip. Objective: Vital Signs: Temp Pulse Resp BP Pulse Ox 99.0 F 93 18 132/66 90 08/16/19 08:27 08/16/19 08:27 08/16/19 08:35 08/16/19 08:27 08/16/19 08:27 Laboratory Results - last 24 hr 08/16/19 06:03 Hgb 8.8 L Hct 27 L Plt Count 147 L MPV 8.4 LLE - dressing changed, inc c/d/i. distally nvi. thigh swollen, soft. Assessment: 63 yo F pod 2 s/p LTHA with abductor tendon repair Plan: pt/ot - wbat lle - no active hip abduction strict posterior hip precautions eliquis holding BP med and BP much improved. plan d/c to home with vns 08/17
[2019-08-16] MEDS ORDERED: Influenza VAC *QUAD* 2019-20* 0.5 ML SYRINGE IM ONE (09:00)
--- NOTE | 2019-08-16 09:32 | PN ---
Subjective Date of Service: 08/16/19 Interval History: Pt examined today at the bedside. She states that she is still having a significant amount of pain in the left hip. She denies chest pain and denies shortness of breathe. She denies lightheadedness upon position change. She denies abdominal pain. She states besides the pain she is feeling well. ROS-denies fever, denies chills, denies chest pain, denies shortness of breathe , denies abdominal pain, denies nausea, denies vomiting, denies lightheadedness , denies loc, review of 14 systems completed all others negative, Family History: Unchanged from Admission Social History: Unchanged from Admission Past Medical History: Unchanged from Admission Objective Active Medications: Acetaminophen (Tylenol Tab*) 975 mg PO Q8HR [facility] Last Admin: 08/16/19 06:31 Dose: Not Given Hydrocodone Bitart/Acetaminophen ([place] 5-325 Tab*) 1 tab PO Q4H PRN PRN Reason: PAIN - MILD Hydrocodone Bitart/Acetaminophen ([place] 5-325 Tab*) 2 tab PO Q4H PRN PRN Reason: .BREAKTHROUGH PAIN Last Admin: 08/16/19 08:35 Dose: 2 tab Apixaban (Eliquis*) 2.5 mg PO BID [facility] Last Admin: 08/16/19 08:35 Dose: 2.5 mg Atorvastatin Calcium (Lipitor*) 40 mg PO BEDTIME [facility] Last Admin: 08/15/19 19:30 Dose: 40 mg Bisacodyl (Dulcolax Supp*) [address] DAILY PRN PRN Reason: CONSTIPATION Cyclobenzaprine HCl (Flexeril Tab*) 10 mg PO Q6H PRN PRN Reason: SPASMS Last Admin: 08/15/19 03:16 Dose: 10 mg Diphenhydramine HCl (Benadryl Iv*) 25 mg IV Q6H PRN PRN Reason: PRURITIS Diphenhydramine HCl (Benadryl Po*) 25 mg PO Q6H PRN PRN Reason: PRURITIS Docusate Sodium (Colace Cap*) 100 mg PO BID [facility] Last Admin: 08/16/19 08:34 Dose: 100 mg Fluoxetine HCl (Prozac Cap*) 60 mg PO QAM [facility] Last Admin: 08/16/19 08:35 Dose: 60 mg Gabapentin (Neurontin Cap(*)) 600 mg PO BID [facility] Last Admin: 08/16/19 08:35 Dose: 600 mg Lactated Ringer's (Lactated Ringers 1000 Ml Bag*) 1,000 mls @ 100 mls/hr IV PER RATE [facility] Last Admin: 08/15/19 04:15 Dose: 100 mls/hr Lactulose (Lactulose*) 30 ml PO BID PRN PRN Reason: CONSTIPATION Levothyroxine Sodium (Synthroid Tab*) 75 mcg PO 0600 [facility] Last Admin: 08/16/19 06:27 Dose: 75 mcg Losartan Potassium (Cozaar Tab*) 25 mg PO BEDTIME [facility] Last Admin: 08/15/19 19:42 Dose: 25 mg Magnesium Hydroxide (Milk Of Magnesia Liq*) 30 ml PO BID [facility] Last Admin: 08/16/19 08:34 Dose: 30 ml Magnesium Hydroxide (Milk Of Magnesia Liq*) 30 ml PO Q6H PRN PRN Reason: CONSTIPATION Morphine Sulfate (Morphine Inj (Syringe))*) 2 mg IV Q4H PRN PRN Reason: Pain - Unrelieved Last Admin: 08/15/19 13:53 Dose: 2 mg Multivitamins (Theragran Tab*) 1 tab PO DAILY [facility] Last Admin: 08/16/19 08:34 Dose: 1 tab Ondansetron HCl (Zofran Inj*) 4 mg IV Q6H PRN PRN Reason: NAUSEA Ondansetron HCl (Zofran Odt Tab*) 4 mg PO Q6H PRN PRN Reason: NAUSEA Pantoprazole Sodium (Protonix Tab*) 40 mg PO BEDTIME [facility] Last Admin: 08/15/19 19:31 Dose: 40 mg Terazosin HCl (Hytrin Cap*) 10 mg PO BEDTIME [facility] Last Admin: 08/15/19 19:30 Dose: 10 mg Tramadol HCl (Ultram*) 50 mg PO Q4H PRN PRN Reason: PAIN - MODERATE Last Admin: 08/16/19 06:27 Dose: 50 mg Tramadol HCl (Ultram*) 100 mg PO Q4H PRN PRN Reason: PAIN - SEVERE Last Admin: 08/15/19 11:18 Dose: 100 mg Vital Signs - 8 hr 08/16/19 08/16/19 08/16/19 03:25 03:28 06:27 Temperature 99.4 F Pulse Rate 96 Respiratory 16 18 18 Rate Blood Pressure 138/62 (mmHg) O2 Sat by Pulse 92 Oximetry 08/16/19 08/16/19 08/16/19 08:27 08:33 08:35 Temperature 99.0 F Pulse Rate 93 Respiratory 16 18 18 Rate Blood Pressure 132/66 (mmHg) O2 Sat by Pulse 90 Oximetry Oxygen Devices in Use Now: None Appearance: well nourished well developed, Eyes: No Scleral Icterus, PERRLA Ears/Nose/Mouth/Throat: NL Teeth, Lips, Gums Neck: NL Appearance and Movements; NL JVP Respiratory: Symmetrical Chest Expansion and Respiratory Effort, Clear to Auscultation Cardiovascular: NL Sounds; No Murmurs; No JVD Abdominal: NL Sounds; No Tenderness; No Distention Extremities: No Edema Skin: - - dressing to left hip CDI, no drainage noted, Neurological: Alert and Oriented x 3 Lines/Tubes/Other Access: Clean, Dry and Intact Peripheral IV Result Diagrams: 08/16/19 06:03 08/15/19 05:03 Assess/Plan/Problems-Billing Assessment: 63 y/o female patient presenting to Dr Dixon's service for a LTHA who carries a history of HTN, HLD, fibromyalgia and hypothyroidism we were asked to follow given co-morbid medical conditions. - Patient Problems (1) DVT prophylaxis Current Visit: Yes Status: Acute Priority: High Comment: eliquis (2) Fibromyalgia Current Visit: Yes Status: Chronic Priority: Medium Comment: continue gabapentin (3) Full code status Current Visit: Yes Status: Acute Priority: High (4) GERD (gastroesophageal reflux disease) Current Visit: Yes Status: Chronic Priority: Medium Comment: continue protonix (5) HTN (hypertension) Current Visit: Yes Status: Acute Priority: High Comment: - BP imporved today would hold norvasc for now and restart if sbp continues to increase - will continue Losartan at 1/2 dose 25 mg with holding for SBP less than 110 (6) Hypothyroid Current Visit: Yes Status: Chronic Priority: Medium Comment: continue levothyroxine (7) Status post left hip replacement Current Visit: Yes Status: Acute Priority: High Comment: management per orthopedics PT/OT per orthopedics pain management per orthopedics DVT prop per ortho bowel medications per orthopedics Status and Disposition: disposition per ortho,
[2019-08-16] MEDS: Cyclobenzaprine TAB* 10 MG PO PRN (09:55)
[2019-08-16] MEDS ORDERED: Bisacodyl SUPP* 10 MG SUPP PR PRN (16:33)
[2019-08-16] MEDS: Losartan TAB* 25 MG PO SCH (22:12)
[2019-08-16] MEDS: Pantoprazole TAB * 40 MG TAB PO SCH (22:13)
[2019-08-16] MEDS: Atorvastatin* 40 MG TAB PO SCH (22:13)
[2019-08-16] MEDS: Terazosin CAP* 5 MG PO SCH (22:13)
[2019-08-17] MEDS: HYDROcodone/ACETAMIN 5-325 MG* 1 TAB PO PRN ×3 (02:11→13:07)
[2019-08-17 05:31] LABS: Hematocrit 27 % (35-47); Mean Platelet Volume 8.4 fL (7.4-10.4); Platelet Count 167 10^3/uL (150-450)
[2019-08-17] MEDS: Levothyroxine TAB* 75 MCG TAB PO SCH (06:28)
[2019-08-17] MEDS: Acetaminophen TAB* 325 MG PO SCH ×2 (06:37→13:09)
[2019-08-17] MEDS: Vitamin THERAPEUTIC TAB PO SCH (08:26)
[2019-08-17] MEDS: Magnesium Hydroxide LIQ* 30 ML UDC PO SCH (08:26)
[2019-08-17] MEDS: Gabapentin CAP(*) 300 MG PO SCH (08:26)
[2019-08-17] MEDS: Apixaban* 2.5 MG TAB PO SCH (08:26)
[2019-08-17] MEDS: FLUoxetine CAP* 20 MG PO SCH (08:26)
[2019-08-17] MEDS: Docusate CAP* 100 MG PO SCH (08:26)
--- NOTE | 2019-08-17 10:53 | PN ---
Progress Note - Progress Note Date of Service: 08/17/19 SOAP: Subjective: POD #3 Left SHAD. Doing ok, still having moderate pain. Denies CP/SOB, f/c, n/v or calf pain Objective: Vital Signs: Temp Pulse Resp BP Pulse Ox 98.5 F 81 18 111/52 93 08/17/19 07:49 08/17/19 07:49 08/17/19 08:26 08/17/19 07:49 08/17/19 07:49 Gen: A&Ox3, NAD at rest sitting in chair Left hip: Dressing C/D/I, thigh soft and NT. +f/e at knee, ankle and MTPs. N/V intact Labs: Laboratory Results - last 24 hr 08/17/19 04:56 Hgb 9.0 L Hct 27 L Plt Count 167 MPV 8.4 Assessment: POD3# Left SHAD Plan: D/C home today VNS to do wound checks/home PT Cont posterior hip precautions Eliquis for DVT ppx F/u with Dr. Dixon 10-14 days post op
--- NOTE | 2019-08-17 11:10 | DS ---
Orthopedic Discharge Summary - Discharge Summary Date of Admission:08/14/19 Date of Discharge: 08/17/19 Date of Surgery: 08/14/19 Attending Orthopedic Provider: Jaqui Dixon MD Pre-operative Diagnosis: Left hip osteoarthritis Operative Procedure: Left total hip arthroplasty with abductor tendon repair Disposition of Patient: Home Condition of Patient: Stable History: LOUIE CORLEY is a 63 year old F with years of increasingly severe left hip pain. Patient has failed conservative management and has elected to undergo a left total hip replacement Hospital Course: LOUIE was admitted to [facility] on 08/14/19. Patient underwent a left total hip arthroplasty with abductor tendon repair without complication followed by a brief recovery in PACU and transfer to the Short Stay Surgical Unit in stable condition. Our hospitalist service, physical therapy and occupational therapy also participated in this patients care. Post- op day 1: patient was alert and in no acute distress. Dressing was clean, dry and intact. Operative extremity dorsiflexion and plantarflexion intact, sensation intact to light touch distally, DP2+. Patient had some difficutly with pain control on day 1. Post-op day 2: dressing was changed, incision was clean, dry and intact. Patient still had difficulty with pain control and was not suitable for discharge. Post-op day 3: Patient was alert and in no acute distress. Dressing was clean, dry and intact. Operative extremity dorsiflexion and plantarflexion intact, sensation intact to light touch distally, DP2+. Pain had improved. Patient was deemed to be medically and orthopedically stable for discharge. Physical therapy goals were met. Home Medications Medication Instructions Recorded Confirmed Type Aspirin 81 mg CHEW TAB* 81 mg PO QAM 12/09/12 08/14/19 History FLUoxetine CAP* [Prozac CAP*] 60 mg PO QAM 12/09/12 08/14/19 History Gabapentin* 2 cap PO BID 12/09/12 08/14/19 History Atorvastatin* 40 mg PO BEDTIME 05/23/13 08/04/19 History Levothyroxine TAB* [Synthroid 75 75 mcg PO QAM 05/23/13 08/14/19 History MCG TAB*] Underwood-3/Dha/Epa/Fish Oil [Fish Oil 1,000 mg PO QAM 02/19/17 08/14/19 History 1,000 mg Softgel] Methocarbamol TAB* [Robaxin 500 MG 1,000 mg PO BID 09/07/17 08/14/19 History TAB*] Calcium/Vitamin D 1 dose PO BID 01/09/18 08/14/19 History Iron 324 mg PO BID 01/09/18 08/14/19 History Omeprazole CAP (NF) [Prilosec CAP* 20 mg PO BEDTIME 01/09/18 08/14/19 History 20 MG] Terazosin CAP* [Hytrin CAP 5 MG*] 10 mg PO BEDTIME 01/09/18 08/14/19 History Tramadol ER(NF) [Ultram ER(NF)] 200 mg PO BEDTIME 01/09/18 08/14/19 History traZODone TAB* [Desyrel TAB*] 200 mg PO BEDTIME 01/09/18 08/14/19 History Albuterol 2.5MG/3ML (0.083%)* 2.5 mg INH Q4H PRN 08/04/19 08/04/19 History [Ventolin 2.5 MG/3 ML NEB.YIFAN*] Losartan Potassium [Cozaar] 50 mg PO BEDTIME 08/04/19 08/14/19 History Multivitamin [Once Daily] 1 each PO QAM 08/04/19 08/14/19 History hydrOXYzine HCL TAB* [Atarax TAB 100 mg PO BEDTIME 08/04/19 08/14/19 History 50 MG *] Amlodipine Besylate [Norvasc] 5 mg PO QPM 08/13/19 08/14/19 History Apixaban* [Eliquis*] 2.5 mg PO BID tab 08/17/19 Rx Cyclobenzaprine TAB* [Flexeril 10 10 mg PO Q6H PRN tab 08/17/19 Rx MG TAB*] Docusate CAP* [Colace Cap*] 100 mg PO BID cap 08/17/19 Rx HYDROcodone/ACETAMIN 5-325 MG* 1 tab PO Q4H PRN tab 08/17/19 Rx [[place] 5-325 TAB*] HYDROcodone/ACETAMIN 5-325 MG* 2 tab PO Q4H PRN tab 08/17/19 Rx [[place] 5-325 TAB*] Discharge Instructions following Orthopedic Surgery: Activity: * Weight Bearing as tolerated * Continue physical therapy and occupational therapy exercises as shown Hip replacements: Continue Hip Precautions- do not cross legs or bend greater than 90 degrees/squat Avoid active abduction left leg secondary to abductor tendon repair Wound care: * OK to shower on post-op day 3, no bathing, swimming, or submerging wound. * Use gentle soap, pat dry. Cover with gauze, CRISTINE wrap or tape. * Visiting home nurse to do wound checks. Call Orthopedic office for: * Increased drainage * Redness * Increased pain * Fever Go to ER with shortness of breath or chest pain. Diet: * Regular diet * Increase fluids and fiber to prevent constipation. * Continue to use stool softeners, call office if no bowel motion within 48 hours. Medications See Home Medication List in your packet for medications that you should take after discharge. DVT Prophylaxis: Eliquis Dosin.5 mg, 1 tab every 12 hours x 30 days Pain Control: Hydrocodone 5/325 mg 1-2 tabs by mouth every 4 hours as needed for pain. Maximum of 8 tabs per day Please note that Hydrocodone contains Tylenol (acetaminophen). Maximum daily dose of Tylenol is 4000 mg from all sources. Antibiotics are required prior to any dental work. FOLLOW UP: Follow up with Dr. Dixon Within 10-14 days, call for appointment Please call our office with any questions or concerns ([phone])
[2019-08-17 11:29] VITALS: BP 119/52
== END 2019-08-17 15:05 | disposition home health service (06) | DRG 301 ==
LOC: AA 10:41 → SSU 18:04
PROVIDERS: ADMIT Orthopaedic Surgery Adult Reconstructive Orthopaedic Surgery; ATTEND Orthopaedic Surgery Adult Reconstructive Orthopaedic Surgery
PROC: 0LQK0ZZ Repair Left Hip Tendon, Open Approach (ICD-10-PCS; 2019-08-14)
PROC: 0SRB01A Replacement of Left Hip Joint with Metal Synthetic Substitute, Uncemented, Open Approach (ICD-10-PCS; principal; 2019-08-14 13:30)
DX: M16.12 Unilateral primary osteoarthritis, left hip (principal); Z68.41 Body mass index [BMI] 40.0-44.9, adult; I10 Essential (primary) hypertension; E78.5 Hyperlipidemia, unspecified; M79.7 Fibromyalgia; E03.9 Hypothyroidism, unspecified; G89.29 Other chronic pain; K21.9 Gastro-esophageal reflux disease without esophagitis; E66.01 Morbid (severe) obesity due to excess calories; Z96.653 Presence of artificial knee joint, bilateral; Z96.612 Presence of left artificial shoulder joint; G47.33 Obstructive sleep apnea (adult) (pediatric); I95.9 Hypotension, unspecified; M54.5 Low back pain; F41.9 Anxiety disorder, unspecified; F43.10 Post-traumatic stress disorder, unspecified; S76.012A Strain of muscle, fascia and tendon of left hip, initial encounter; X58.XXXA Exposure to other specified factors, initial encounter; Y92.9 Unspecified place or not applicable; Z23 Encounter for immunization; Z98.41 Cataract extraction status, right eye; Z98.42 Cataract extraction status, left eye; Z88.6 Allergy status to analgesic agent; Z87.891 Personal history of nicotine dependence; Z80.3 Family history of malignant neoplasm of breast; Z79.82 Long term (current) use of aspirin; Z79.899 Other long term (current) drug therapy
CPT/HCPCS: 36415; 80048; 85014; 85018; 85049; 88304; 88311; 90686; A9270-GY; C1713; C1776; G8978-GP-CJ; G8979-GP-CI; G8987-GO-CJ; G8988-GO-CJ; G8989-GO-CJ; J0360; J0690; J1885; J2250; J2270; J2405; J2704; J3490

== ENCOUNTER 2024-03-20 09:45 | Inpatient (IN) ==
[~2024-03-20 09:45] MED LIST changes: +Acetaminophen IV 1 GM/100ML 1,000 MG/100 ML BAG IV ONE; +Buffered Lidocaine 1% SYRIN 1 ml INTRADERM ONE; -Buffered Lidocaine 1% SYRIN* 1 ML/SYRINGE INTRADERM ONE; +Bupivacaine 0.5% PF 10 ML SDV VIAL INJ ONE; +Dexamethasone IV 4 MG/ML VIAL 1 ml VIAL ONE; -Famotidine IV* 10 MG/ML 2 ML (20 mg) IV ONE; -Gabapentin CAP(*) 300 MG PO ONE; -Lactated Ringers 1000 ML Bag* 1,000 ML IV SCH; +Lactated Ringers 1000 ml BAG 1,000 ML IV SCH; +Lidocaine 2% PF 5 ML VIAL ONE; +Metoclopramide 5 MG/ML VIAL (10 mg) IV PRN; +Midazolam 2 mg/2 ml VIAL 1 mg/ml 2 ml VIAL (2 mg) ONE; +NS 0.45% 1000 ml BAG 1,000 ML IV SCH; +Naloxone 0.4 mg VIAL 0.4 mg/ml 1 ml VIAL IV PRN; +Ondansetron 4 mg VIAL 2 MG/ML 2 ml VIAL ONE; +Sterile Water for Inj 10 ML ONE; -Tranexamic Acid 1,000 MG in NS 0.9% 50 ML* (outpatient use) IV SCH; +fentaNYL 100 mcg/2 ml 50 MCG/ML VIAL ONE
[2024-03-20] MEDS ORDERED: fentaNYL 100 mcg/2 ml 50 MCG/ML VIAL ONE ×6 (10:14→19:24)
[2024-03-20] MEDS ORDERED: Tranexamic Acid 1 GM/100ML BAG 2,000 MG/200 ML BAG IV ONE (11:31)
[2024-03-20] MEDS ORDERED: ceFAZolin 2 GM in NS PREMIX 2 GM/100 ML BAG IVPB ONE (11:31)
[2024-03-20 11:56] LABS: Rapid COVID-19 Molecular Undetected (Undetected)
[2024-03-20] MEDS ORDERED: Midazolam 2 mg/2 ml VIAL 1 mg/ml 2 ml VIAL (2 mg) ONE (12:35)
[2024-03-20] MEDS ORDERED: Bupivacaine 0.25% EPI 200,000 30 ML SDV ONE (12:36)
[2024-03-20] MEDS ORDERED: Ondansetron ODT 4 mg TAB 4 MG TAB PO PRN (14:32)
[2024-03-20] MEDS ORDERED: Ondansetron 4 mg VIAL 2 MG/ML 2 ml VIAL IV PRN (14:32)
[2024-03-20] MEDS ORDERED: Lactulose 30 ml UDC PO PRN (14:32)
[2024-03-20] MEDS ORDERED: Magnesium Hydroxide LIQ 30 ML UDC PO PRN (14:32)
[2024-03-20] MEDS ORDERED: HYDROcodone/ACETAMIN 5/325 mg TAB PO PRN (14:40)
[2024-03-20] MEDS ORDERED: ROPIVACAINE 5 MG/ML 30 ML BTL (0.5%) ONE (15:21)
[2024-03-20] MEDS ORDERED: Rocuronium 50 mg VIAL 10 mg/ml 5 ml VIAL (50 mg) ONE (15:25)
[2024-03-20] MEDS ORDERED: Propofol 10 MG/ML 20 ML BTL ONE (16:36)
[2024-03-20] MEDS ORDERED: ceFAZolin VIAL VIAL ONE (18:07)
[2024-03-20] MEDS ORDERED: Ondansetron 4 mg VIAL 2 MG/ML 2 ml VIAL ONE (18:40)
[2024-03-20] MEDS: Ondansetron 4 mg VIAL 2 MG/ML 2 ml VIAL IV PRN (18:42)
[2024-03-20] MEDS: fentaNYL 100 mcg/2 ml 50 MCG/ML VIAL IV PRN (18:46)
[2024-03-20] MEDS ORDERED: HYDROcodone/ACETAMIN 5/325 mg TAB ONE (19:02)
[2024-03-20] MEDS ORDERED: HYDROmorphone 1 MG/1 ML SYRINGE ONE (19:02)
[2024-03-20] MEDS: HYDROcodone/ACETAMIN 5/325 mg TAB PO PRN ×2 (19:03→23:41)
[2024-03-20] MEDS: HYDROmorphone 1 MG/1 ML SYRINGE IV PRN (19:04)
[2024-03-20] MEDS: [UNRECOGNIZED DRUG - OTHER] RIGHT EYE ONE (20:41)
[2024-03-20] MEDS: Lactated Ringers 1000 ml BAG 1,000 ML IV SCH (20:46)
[2024-03-20] MEDS: Morphine 2 MG/ML SYRINGE IV PRN (21:37)
[2024-03-20] MEDS: Magnesium Hydroxide LIQ 30 ML UDC PO SCH (21:52)
[2024-03-20] MEDS: ceFAZolin 1 GM ADVAN 1 GM in NS 0.9% 50 ML 50 ML IVPB SCH (23:44)
[2024-03-21 06:53] LABS: Calcium 8.5 mg/dL (8.6-10.3); Creatinine, Serum 0.75 mg/dL (0.51-0.95); Potassium 4.2 mmol/L (3.5-5.0); eGFR CKD-EPI 86.1 (>60)
[2024-03-21 07:29] LABS: Hematocrit 27.1 % (35-45); Hemoglobin 8.9 g/dL (11.5-14.3); Mean Platelet Volume 8.6 fL (7.5-11.2); Platelet Count 174 10^3/uL (150-450)
[2024-03-21] MEDS: Vitamin THERAPEUTIC TAB PO SCH ×2 (08:27→08:37)
[2024-03-22 05:48] LABS: Hematocrit 25.6 % (35-45); Hemoglobin 8.4 g/dL (11.5-14.3); Mean Platelet Volume 8.5 fL (7.5-11.2); Platelet Count 142 10^3/uL (150-450)
[2024-03-23 05:30] LABS: Hematocrit 26.3 % (35-45); Hemoglobin 8.6 g/dL (11.5-14.3); Mean Platelet Volume 8.6 fL (7.5-11.2); Platelet Count 153 10^3/uL (150-450)
[2024-03-23 10:24] VITALS: BP 150/83
== END 2024-03-23 14:34 | disposition home or self-care (01) | DRG 468 ==
LOC: AA 11:12 → SSU 18:08
PROVIDERS: ADMIT Orthopaedic Surgery Adult Reconstructive Orthopaedic Surgery; ATTEND Orthopaedic Surgery Adult Reconstructive Orthopaedic Surgery